=== PATIENT | male | born 1945 | race Caucasian/White ===

== ENCOUNTER 2018-03-09 05:10 | Day surgery (SDC) | payer MEDICARE, OTHER ==
[2018-03-08 16:05] LABS: BASOPHILS 0.2 % (0-2); EOSINOPHILS 7.3 % (0-7); HEMATOCRIT 41.7 % (42.0-54.0); HEMOGLOBIN 13.7 g/dL (13.5-17.5); IMMATURE GRANULOCYTES 0.2 % (0-5); LYMPHOCYTES 20.4 % (15-50); MCHC 32.9 g/dL (31.0-37.0); MCV 91.2 fL (80.0-100.0); MEAN PLATELET VOLUME 10.3 fL (7.4-10.4); MONOCYTES 7.8 % (2-11); NEUTROPHILS 64.1 % (40-80); PLATELET COUNT 176 10x3/uL (130-400); RBC 4.57 10x6/uL (4.20-6.10); RDW 12.6 % (11.5-14.5); WBC 6.3 10x3/uL (4.8-10.8)
[2018-03-08 16:30] LABS: ANION GAP 14.9 mmol/L (8-16); CALCIUM 9.2 mg/dL (8.5-10.1); CARBON DIOXIDE 27.4 mmol/L (21.0-32.0); CREATININE - SERUM 1.5 mg/dL (0.6-1.3); POTASSIUM - SERUM 4.3 mmol/L (3.5-5.1)
[~2018-03-09] VITALS: Ht 180.3 cm; Wt 81.2 kg
[~2018-03-09 05:10] MED LIST: ASPIRIN EC81 M1 PO; FLOMAX0.4 MG; FLOMAX0.4 MG PO; LAMICTAL200 M1 PO; LITHOBID 300 M300 MG PO; MYSOLINE 50 MG50 MG PO; NORVASC5 MG PO; PRAVASTATIN SOD10 MG PO; SYNTHROID175 MCG PO; TOPROL XL50 MG PO; VITAMIN B-121000 MCG PO; WELLBUTRIN XL300 M1 PO; ZOCOR40 MG PO
[2018-03-09] MEDS ORDERED: VITAMIN B-121000 MCG PO (06:14)
[2018-03-09] MEDS ORDERED: MIRAPEX0.5 MG PO (06:18)
[2018-03-09 06:24] VITALS: BP 132/70; Ht 180.3 cm; Wt 81.2 kg
--- NOTE | 2018-03-09 08:45 | NUR ---
REC'D FROM SURGERY. FAMILY AT BEDSIDE. DR LOPEZ IN AND TALKING WITH PT AND FAMILY. ORANGE JUICE BROUGHT TO PT.
--- NOTE | 2018-03-09 08:50 | NUR ---
FL TRAY BROUGHT TO PT.
--- NOTE | 2018-03-09 09:15 | NUR ---
TOLERATING FL TRAY. NO VOID. FAMILY AT BEDSIDE.
--- NOTE | 2018-03-09 09:21 | OP ---
PATIENT NAME: YAMILA CAO V MEDICAL RECORD: [id number] :44 LOCATION:D.[facility] ADMISSION DATE: SURGEON: VINCENT LOPEZ MD DATE OF OPERATION: 03/09/2018 SURGEON: Vincent Lopez MD ANESTHESIA: TIVA by Ector Nguyen CRNA PROCEDURE: Cystoscopy, transrectal ultrasound and prostate biopsy. FINDINGS: On cystoscopy, no urethral strictures. Bilateral lateral lobe hyperplasia with obstruction. No significant median lobe. Single ureteral orifices bilaterally with no bladder tumors. On transrectal ultrasound, 34 gram prostate with intraprostatic stones. SPECIMENS: Prostate biopsy cores. BLOOD LOSS: None. CLINICAL HISTORY: This is a 72-year-old male, who has issues with difficulty voiding. He has been seeing Dr. Anna up to now, but he wants a second opinion. He has been treated with antibiotics for pain in the perineum, worse prior to voiding. They thought this might have been prostatitis. Even after about 120 days of antibiotics, his PSA was still elevated at 5.08. He has significant voiding symptoms including nocturia, occasional urge incontinence, hesitancy, and a slow urinary flow. His IPSS score is 14 and his quality of life score is 6. We are going to be performing cystoscopy to check for his prostate configuration. Also, we will perform a prostate biopsy today. If he does not have prostate cancer on his biopsy, then he will be a candidate for the UroLift procedure in the near future. He is not allergic to any medications. He was given Ancef gis application developer to the OR. DESCRIPTION OF PROCEDURE: The patient was given IV sedation. He was then placed into dorsal lithotomy position, prepped and draped. A 17-Malian cystoscope was placed into the urethra with a 30-degree lens. Findings are as outlined above. Once the bladder outlet obstruction from obstructive BPH, lateral lobes was confirmed. The bladder was completely emptied through the cystoscope sheath. The scope was then removed entirely. We then introduced the transrectal ultrasound probe. Prostate size measurements were obtained. The prostate size was measured at 34 grams. Intraprostatic stones were seen. No hypoechoic lesions were noted. Sextant biopsies were obtained with at least 3 cores from each sextant. Once the procedure was done, the patient was awakened and brought back to the preoperative holding area. I will review the pathology results with him next week. TRANSINT:[id number] Voice Confirmation ID: [id number] DOCUMENT ID: [id number] OPERATIVE REPORT [id number] YAMILA CAO ROBERT S MD at 0921 CC: [id number] DICTATION DATE: 03/09/1838 WATCH LEADER: 03/09/18 0850 REG [facility] [address] [id number]
--- NOTE | 2018-03-09 09:25 | NUR ---
AMBULATED TO BATHROOM AND VOIDED WITHOUT DIFFICULTY. IV DC'D WITH CATHETER INTACT.
--- NOTE | 2018-03-09 09:35 | NUR ---
WRITTEN AND VERBAL DC INST GIVEN TO PT. VERBALIZED UNDERSTANDING. STABLE AT TIME OF DC.
--- NOTE | 2018-03-09 09:40 | NUR ---
DC'D HOME WITH FAMILY VIA PRIVATE VEHICLE. TAKEN TO VEHCILE VIA WC. STABLE AT TIME OF DC.
== END 2018-03-09 09:40 | disposition home or self-care (01) ==
LOC: D.OPS 05:10 → D.PAN 07:30 → D.OPS 07:30
PROVIDERS: Anesthesiology
DX: R97.20 Elevated prostate specific antigen [PSA] (principal); N40.1 Benign prostatic hyperplasia with lower urinary tract symptoms; N13.8 Other obstructive and reflux uropathy; R35.1 Nocturia; N32.0 Bladder-neck obstruction; Z01.812 Encounter for preprocedural laboratory examination

== ENCOUNTER → 2018-03-31 18:50 | Outpatient (CLI) | payer MEDICARE, OTHER ==
[2018-03-09 06:24] VITALS: BMI 25.0
[~2018-03-31 18:50] MED LIST changes: +MIRAPEX0.5 MG PO
== END | disposition home or self-care (01) ==
LOC: D.LABREF 18:50
DX: D72.829 Elevated white blood cell count, unspecified (principal); R31.9 Hematuria, unspecified

== ENCOUNTER → 2018-04-20 15:38 | Outpatient (CLI) | payer MEDICARE, OTHER ==
[2018-03-09 06:24] VITALS: BMI 25.0
== END | disposition home or self-care (01) ==
LOC: D.LABREF 15:38
DX: D72.829 Elevated white blood cell count, unspecified (principal)

== ENCOUNTER 2018-04-27 08:14 | Day surgery (SDC) | payer MEDICARE, OTHER ==
[~2018-04-27] VITALS: Ht 180.3 cm; Wt 83.0 kg
[2018-04-27 08:49] LABS: HEMATOCRIT 41.4 % (42.0-54.0); HEMOGLOBIN 13.6 g/dL (13.5-17.5); MCH 29.7 pg (26.0-34.0); MCHC 32.9 g/dL (31.0-37.0); MCV 90.4 fL (80.0-100.0); RBC 4.58 10x6/uL (4.20-6.10); RDW 13.1 % (11.5-14.5); WBC 5.4 10x3/uL (4.8-10.8)
[2018-04-27 10:13] VITALS: BP 111/72; Ht 180.3 cm; Wt 83.0 kg
--- NOTE | 2018-04-27 12:09 | NUR ---
SHORT STAY PER ELSY CHISHOLM CORE WORKER
--- NOTE | 2018-04-27 12:25 | NUR ---
REC'D FROM RR. FAMILY AT BEDSIDE. ICE WATER AND FL TRAY BROUGHT TO PT.
--- NOTE | 2018-04-27 12:45 | NUR ---
URINAL TAKEN TO PATIENT.
--- NOTE | 2018-04-27 12:55 | NUR ---
TOLERATED FL TRAY. VOIDED BLOODY URINE. FAMILY AT BEDSIDE.
--- NOTE | 2018-04-27 13:10 | NUR ---
WRITTEN AND VERBAL DC INST GIVEN TO PT. VERBALIZED UNDERSTANDING. IV DC'D WITH CATHETER INTACT.
--- NOTE | 2018-04-27 13:30 | NUR ---
DC'D HOME WITH FAMILY VIA PRIVATE VEHICLE. TAKEN TO VEHICLE VIA WC. STABLE AT TIME OF DC.
--- NOTE | 2018-04-27 13:50 | OP ---
PATIENT NAME: YAMILA CAO V MEDICAL RECORD: [id number] :43 LOCATION:D.OPS ADMISSION DATE: SURGEON: ROSAURA LOPEZ MD DATE OF OPERATION: 04/27/2018 SURGEON: Rosaura Lopez MD ANESTHESIA: General anesthesia by Ector Nguyen CRNA DIAGNOSIS: Obstructive BPH. DASIA 60 mL prostate. IPSS score is 14 and quality of life score is 6, on terazosin. PROCEDURE: UroLift times 4 implants. FINDINGS: Bilateral lateral lobe hyperplasia with minimal median lobe hyperplasia. Bilateral single ureteral orifices with no bladder tumors. ESTIMATED BLOOD LOSS: Minimal. CLINICAL HISTORY: This is a 72-year-old male who has quite significant voiding symptoms in spite of being on terazosin for almost a year. He wishes to have the UroLift procedure done. He is not allergic to any medications. He was given Ancef salesperson pets and pet supplies to the OR. Initially, we tried to do this under TIVA. However, the patient's restless legs prevented him from holding still. Therefore, he was given general anesthetic. DESCRIPTION OF PROCEDURE: The patient was given general anesthetic. He was then placed in dorsal lithotomy position and prepped and draped. The UroLift cystoscope was introduced, and the findings are as outlined above. 1.5 cm distal to the bladder neck, we implanted in the anterior lateral prostatic lobes an UroLift implant on each side. This opened up the bladder neck region. Then, at the level of the verumontanum, we again placed at the anterior lateral prostatic urethra another left implant on each side. This gave a total of 4 implants. He now has a wide anterior prosthetic urethral channel. The bladder was emptied through the cystoscope sheath and the patient was awakened and brought to the recovery room. I will see him in followup in 1 month's time. TRANSINT:[id number] Voice Confirmation ID: [id number] DOCUMENT ID: [id number] ROSAURA LOPEZ MD at 1350 CC: [id number] DICTATION DATE: 04/27/18 1157 EVALUATION MANAGER: 04/27/18 1325 REG [facility] [address] [place] [address]
== END 2018-04-27 13:30 | disposition home or self-care (01) ==
LOC: D.OPS 08:14
PROVIDERS: Anesthesiology; ATTEND Urology
DX: N40.1 Benign prostatic hyperplasia with lower urinary tract symptoms (principal); N13.8 Other obstructive and reflux uropathy; G25.81 Restless legs syndrome; Z01.812 Encounter for preprocedural laboratory examination

== ENCOUNTER 2018-04-27 21:07 | Emergency (ER) | payer MEDICARE, OTHER ==
[~2018-04-27] VITALS: Ht 180.3 cm; Wt 79.5 kg
[2018-04-27 21:10] VITALS: Ht 180.3 cm; Wt 79.5 kg
[2018-04-27 21:55] VITALS: BP 145/84
== END 2018-04-27 21:57 | disposition home or self-care (01) ==
LOC: D.ER 21:07
DX: R33.8 Other retention of urine (principal)

== ENCOUNTER 2018-04-28 20:14 | Emergency (ER) | payer MEDICARE, OTHER ==
[~2018-04-28] VITALS: Ht 180.3 cm; Wt 79.5 kg
[2018-04-28 20:26] VITALS: Ht 180.3 cm; Wt 79.5 kg
[2018-04-28 21:23] VITALS: BP 157/73
== END 2018-04-28 21:24 | disposition home or self-care (01) ==
LOC: D.ER 20:14
DX: T83.098A Other mechanical complication of other urinary catheter, initial encounter (principal)

== ENCOUNTER → 2018-05-26 18:50 | Outpatient (CLI) | payer MEDICARE, OTHER ==
[2018-04-28 20:26] VITALS: BMI 24.4
== END | disposition home or self-care (01) ==
LOC: D.LABREF 18:50
PROVIDERS: ATTEND Urology
DX: N39.0 Urinary tract infection, site not specified (principal)

== ENCOUNTER → 2018-06-07 16:07 | Outpatient (CLI) | payer MEDICARE, OTHER ==
[2018-04-28 20:26] VITALS: BMI 24.4
== END | disposition home or self-care (01) ==
LOC: D.LABREF 16:07
PROVIDERS: ATTEND Urology
DX: Z00.00 Encounter for general adult medical examination without abnormal findings (principal)

== ENCOUNTER → 2018-07-27 12:31 | Outpatient (CLI) | payer MEDICARE, OTHER | END | disposition home or self-care (01) | LOC: D.LABREF 12:31 | DX: R30.0 Dysuria (principal) ==

== ENCOUNTER 2020-07-01 13:10 | Inpatient (IN) | payer MEDICARE, OTHER ==
[~2020-07-01] VITALS: Ht 180.3 cm; Wt 79.4 kg
[2020-07-01 13:52] LABS: BASOPHILS 0.2 % (0-2); EOSINOPHILS 4.8 % (0-7); HEMATOCRIT 37.2 % (42.0-54.0); HEMOGLOBIN 12.2 g/dL (13.5-17.5); IMMATURE GRANULOCYTES 0.2 % (0-5); LYMPHOCYTE ABS# 0.92 10x3/uL (1.32-3.57); LYMPHOCYTES 22.1 % (15-50); MCH 30.3 pg (26.0-34.0); MCHC 32.8 g/dL (31.0-37.0); MCV 92.3 fL (80.0-100.0); MEAN PLATELET VOLUME 9.9 fL (7.4-10.4); MONOCYTES 9.9 % (2-11); NEUTROPHIL ABS# 2.61 10x3/uL (1.78-5.38); NEUTROPHILS 62.8 % (40-80); PLATELET COUNT 166 10x3/uL (130-400); RBC 4.03 10x6/uL (4.20-6.10); RDW 12.9 % (11.5-14.5); WBC 4.2 10x3/uL (4.8-10.8)
[2020-07-01 14:01] LABS: ANION GAP 14.9 mmol/L (8-16); CALCIUM 9.4 mg/dL (8.5-10.1); CARBON DIOXIDE 26.6 mmol/L (21.0-32.0); CREATININE - SERUM 1.7 mg/dL (0.6-1.3); POTASSIUM - SERUM 4.5 mmol/L (3.5-5.1)
[2020-07-01 14:06] LABS: ALBUMIN 4.2 g/dL (3.4-5.0); BILIRUBIN - TOTAL 0.43 mg/dL (0.2-1.3); MAGNESIUM - SERUM 2.3 mg/dL (1.8-2.4)
[2020-07-01 16:52] LABS: UDS - AMPHET NEGATIVE QUAL (NEGATIVE); UDS - BARB POSITIVE QUAL (NEGATIVE); UDS - BENZO NEGATIVE QUAL (NEGATIVE); UDS - COCAINE NEGATIVE QUAL (NEGATIVE); UDS - OPIATE NEGATIVE QUAL (NEGATIVE); UDS - PCP NEGATIVE QUAL (NEGATIVE); UDS - THC NEGATIVE QUAL (NEGATIVE)
[2020-07-01 17:07] LABS: BILIRUBIN NEGATIVE (NEGATIVE); KETONE NEGATIVE (NEGATIVE); NITRITE NEGATIVE (NEGATIVE); UROBILINOGEN NORMAL mg/dL (< 2); WHITE CELLS - URINE 25-50 HPF (0-1)
[2020-07-01 17:08] LABS: BACTERIA FEW HPF (NONE SEEN)
[2020-07-01 17:14] LABS: SARS-CoV-2 ANTIGEN NEGATIVE- SARS-COV-2 (NEGATIVE)
--- NOTE | 2020-07-01 18:15 | NUR ---
PT ADMITTED TO [facility] FOR HISTORY OF BIPOLAR AND ADMITS BEING MANIC PER . PT HAS NOT BEEN SLEPT IN FOUR DAYS PER . PT DROVE FROM [place] TO [facility] TO BUY TWO GUNS. PT WENT TO BANK AND WAS RAMBLING TO [employer]. [employer] NOTIFIED PER 'S REPORT. PT FOUND AT [facility] POST OFFICE WITH ONE SHOE ON AND TRANSPORTED TO [facility] ER VIA EMS. UPON ARRIVAL TO THE UNIT. PT WAS YELLING, BECOMING VERY AGGRESSIVE WITH STAFF, AND REMOVING ALL HIS CLOTHING AT THIS TIME. UNABLE TO REDIRECT AT THIS TIME. DR. MENG CALLED. NEW ORDER FOR HALDOL 5MG IM NOW ONE TIME AND ATIVAN 2MG IM NOW ONE TIME. MEDICATIONS GIVEN PER ORDER. PT IS A FULL CODE. VERBAL CONSENT REC'D FROM HORACIO CAO CONTACT # .
--- NOTE | 2020-07-01 20:27 | NUR ---
RECEIVED IN BEDROOM. VERY RESTLESS AND CONFUSED. UNABLE TO VERBALIZE NEEDS. ATTEMPTS TO EXIT BED WITHOUT ASSIST. CORNELIUS ALARM SOUNDING. UNABLE TO FOLLOW SIMPLE DIRECTIONS. PRN GEODON 20MG IM GIVE F0R PSYCHOSIS. CONTINUES TO BE VERY RESTLESS. CONTINUES PLAN OF CARE.
[2020-07-01 20:30] VITALS: BP 172/76
--- NOTE | 2020-07-01 22:08 | NUR ---
CONTINUES TO BE VERY RESTLESS AND CONFUSED. EXITING BED WITHOUT ASSIST. CORNELIUS ALARM SOUNDING. RESISTANT TO REDIRECTION. PRN ATIVAN 1 MG IM GIVEN FOR ANXIETY AND PRN HALDOL 5 MG IM GIVEN FOR PSYCHOSIS.
--- NOTE | 2020-07-01 23:48 | NUR ---
CONTINUES TO BE VERY RESTLESS. CLIMBING FROM BED INTO FLOOR. UNABLE TO REDIRECT OR FOLLOW SIMPLE DIRECTIONS. ANXIETY. PRN ATIVAN 1 MG IM GIVEN FOR ANXIETY AND PRN HALDOL 5 MG IM GIVEN FOR PSYCHOSIS. CONTINUES TO MONITOR FOR SAFETY.
[2020-07-02 00:23] VITALS: BP 172/76; BMI 24.4
--- NOTE | 2020-07-02 08:30 | NUR ---
PT IN ROOM MANIC SPEAKING, PACING, NOT ABLE TO UNDERSTAND WHAT PT IS SPEAKING ABOUT, UNABLE TO REDIRECT AT THIS TIME. PT DID STATE THAT HE WAS LOOKING FOR HIS AND IF WE DIDNT BRING HER TO HIM HE WAS GOING TO DO SOMETHING BAD. NURSE ATTEMPTED TO REDIRECT. NURSE ASSISTED PT INTO RESTROOM. PT WAS SEMI AGRESSIVE WITH STAFF ON REDIRECT BACK TO THE BED. GEODON [address] SHAIKH. WILL REASSESS Q 1 HR FOR EFFECTIVENESS.
--- NOTE | 2020-07-02 09:30 | NUR ---
PT MEDICATION EFFECTIVE AT THIS TIME.
[2020-07-02 10:30] VITALS: BP 119/65
[2020-07-02 10:46] VITALS: Ht 180.3 cm; Wt 79.4 kg
--- NOTE | 2020-07-02 11:45 | NUR ---
MODESTA Valdez BAR TACKER CALLED DR. DE LA CRUZ OFFICE TO OBTAIN A UP TO DATE MEDICATION LIST FOR PT MEDICATIONS. AWAITING MEDICATION LIST FOR MEDICATIONS.
[2020-07-02] MEDS ORDERED: LAMICTAL200 M1 PO (12:04)
[2020-07-02] MEDS ORDERED: LAMICTAL200 M1 (12:06)
[2020-07-02] MEDS ORDERED: MYSOLINE 50 MG50 MG ×4 (12:07→12:09)
[2020-07-02] MEDS ORDERED: OPTIVE SENSITI1 EACH EACH EYE (12:14)
[2020-07-02] MEDS ORDERED: MIRAPEX0.5 MG PO (12:16)
[2020-07-02] MEDS ORDERED: TOPROL XL100 MG (12:16)
--- NOTE | 2020-07-02 12:38 | NUR ---
MEDICATION LIST SENT FROM [facility] AT THIS TIME. MEDICATIONS ENTER INTO THE COMPUTER AT THIS TIME.
--- NOTE | 2020-07-02 15:55 | NUR ---
NURSE GAVE PT A GATORADE AND SEVERAL GLASSES OF WATER AT THIS TIME. PT TOLERATED WELL. CLARITY NOTED. PT SAT IN THE HALLWAY WITH NURSE FOR A WHILE. PT ORIENTED TO PERSON, PLACE AND TIME. PT LACKS INSIGHT TO SITUATION. PT SLEPT FIRST HALF OF SHIFT DUE TO PRN MEDICATIONS. PT CAN MAKE NEEDS KNOWN. AMBULATES. PT WAS DISORIENTED, RAMBLING AND YELLING OUT EARLIER IN SHIFT. PT IS NOW MORE CALM AND ORIENTED. BED ALARM IN PLACE AND ACTIVE. WILL CONT PLAN OF CARE.
--- NOTE | 2020-07-02 18:11 | NUR ---
Rec'd patient this am lying in bed with eyes closed. He is quite. He is A/O times 2 to person and situation. He slept most the day till after lunch then he became more alert and restless. He is talkative and cooperative. He is unsteady. This morning he was restless and would not redirect at all. He was slightly combative with nurses and was gona swing his fist at them.
--- NOTE | 2020-07-02 18:11 | NUR ---
NURSE SPOKE WITH PT AT THIS TIME. PASSCODE GIVEN. SHE WANTED AN UPDATE ON PT AT THIS TIME. NURSE GAVE AN UPDATE ON PT BEHAVIOR. HE HAD MORE CLARITY AND WAS ABLE TO MAKE MORE SENSE AT THIS TIME. PT DID NOT EAT BREAKFAST OR LUNCH. PT DID EAT ALL OF DINNER. NURSE STATED HE WAS MORE CALM AT THIS TIME. STAFF REC[facility]D [facility]. SHE SPOKE WITH THE PT FOR A FEW MINS AND MAKE CLOTHING CHOICES WHILE PT IS HERE.
[2020-07-02 20:00] VITALS: BP 170/72
--- NOTE | 2020-07-02 23:13 | NUR ---
RECEIVED PATIENT IN HIS ROOM SLEEPING, EVENTUALLY HE WOKE UP AND WALKED OUT OF HIS ROOM AND SAID "GIVE ME THE NEEDLE, I AM GOD" HE WAS HARD TO REDIRECT INTIALLY, HE WOULD GET TOO CLOSE TO STAFF'S FACE WHEN TALKING THEREFORE HALDOL AND ATIVAN GIVEN IM @ 2035 FOR SLIGHT AGGRESSION AND MANIC BEHAVIOR. PRN EFFECTIVE.
--- NOTE | 2020-07-03 04:15 | NUR ---
PT YELLING. KICKING THE FOOT OF THE BED. CLAPPING HIS HANDS. WOULD NOT REDIRECT. PRN HALDOL AND ATIVAN IM ADMINISTERED PER LEFT DELTOID BY Clayton SHERIDAN RN.
[2020-07-03 08:00] VITALS: BP 104/85
[2020-07-03 08:14] LABS: RAPID PLASMA REAGIN Non Reactive (Non Reactive)
--- NOTE | 2020-07-03 11:16 | PSY ---
PATIENT NAME:YAMILA CAO MEDICAL RECORD: [id number] : 43 LOCATION:[facility] ADMISSION DATE: 07/01/20 ACCOUNT: [id number] PSYCHIATRIC EVALUATION DATE OF EVALUATION: 07/02/20 IDENTIFYING DATA: The patient is 74 years old and he was admitted to the hospital on a voluntary basis. CHIEF COMPLAINT: Collin. HISTORY OF PRESENT ILLNESS: The patient is wildly manic. Rambling, agitated, threatening, speaking in virtually word salad. He is rambling off various numbers that are unrelated and associated with unrelated verbs and nouns. It is a complete word salad. He is able to follow some directions, although he is hyperverbal and will not answer questions appropriately. PAST MEDICAL HISTORY: Apparently significant for hyperlipidemia, hypothyroidism, and hypertension based on his medication reconciliation. PAST PSYCHIATRIC HISTORY: Provided by his who reports a lifelong history of bipolar disorder for which he has been nicely stabilized. His creatinine has been increasing and a week ago his outpatient psychiatrist took him off of lithium and there was this immediate manic episode. FAMILY HISTORY: Unknown. ALLERGIES: No known drug allergies. CURRENT MEDICATIONS: Include metoprolol, Norvasc, aspirin, Synthroid, Pravachol, Lamictal, Mysoline. SOCIAL HISTORY: The patient is . His reports there is no history of drug or alcohol abuse. 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 MENTAL STATUS EXAMINATION: As described above, the patient is floridly manic, rambling, disorganized and uninterviewable. He does answer no to questions about wanting to harm himself or others. ASSESSMENT: AXIS I: Bipolar disorder, manic. AXIS II: None. AXIS III: Hypertension, hypothyroidism. AXIS IV: Moderate. AXIS V: Global assessment of functioning is 20. PLAN: At this time, the patient is admitted to the hospital secondary to collin with agitation and disruptive behaviors. He will be treated with Depakote and Zyprexa to address his manic symptoms. I would like to put him back on lithium and it may be required that I do so, but he does have a creatinine of 1.7 and almost certainly that is related to his longstanding exposure to lithium, but it is also clear that he has been nicely stabilized on lithium and it may well be necessary to resume it. TRANSINT:[id number] Voice Confirmation ID: [id number] DOCUMENT ID: [id number] GARRETT MENG MD at 1116 CC: [id number] DICTATION DATE: 07/02/201656 HAMMER ADJUSTER: 07/02/20 1723 ADM IN [facility] [address] [place] [address]
--- NOTE | 2020-07-03 11:29 | NUR ---
At approx. 1000 this am, patient became combative with nursing staff. This nurse had attempted 3 times to get him to take him his medications and the last time he grabbed the stryroforam cup out of the nurses hands, squeezed it and slung the cup and its contents at this nurse. He was not redirectable. Per MD order, Ativan and Haldol IM given.
--- NOTE | 2020-07-03 13:55 | NUR ---
Patient was assisted to the bathroom with 2 staff members and assisted back into his reclining w/c. When he sat down, he instantly placed his hand down into his private area, he reached inside his adult pull up and took out his penis, rubbing it, and layed it out in the opening of his brief. He then was attempting to reach back in and take out his scrotum and get it out of his brief. Staff interviened and redirected his actions and provided a blanket for him to cover himself.
--- NOTE | 2020-07-03 16:17 | NUR ---
nurse administered Geodon 20 mg IM in LD per dr. hernandez order. pt tolerated well. will cont to monitor for effectiveness.
--- NOTE | 2020-07-03 17:28 | NUR ---
medication effective at this time.
--- NOTE | 2020-07-03 17:29 | NUR ---
pt eating at this time with much encouragement. pt is restless, oriented to self only. confusion noted. rambling words. does not redirect. attempt to redirect and reorient. very diffuclt to do so. can not make needs known. requires 3x assistance with adls. continue to encourage fluids at this time. noncompliant with meds. prn haldol and ativan administered per order. compliant with assessments and vitals. pt conts to aggressive with care. bed and chair alarm in place and active.
--- NOTE | 2020-07-03 18:05 | NUR ---
Rec'd phone call from patients spouse Lilliana, after pass code reviewed, she requested information about his well being and how he was doing this afternoon. Information given and all questions answered. She thanked us for our time.
[2020-07-03 20:00] VITALS: BP 180/76
--- NOTE | 2020-07-04 00:43 | NUR ---
B) Patient is alert and oriented to self, restless and aggressive with staff, disrobing in hallway, anxious and unsteady on his feet, I) Administered scheduled medications as ordered, redirected as needed, monitored for safety, P$RN Ativan 0.5 mg IM and Haldol 2 mg IM given for anxiety and aggression, at 19:30 R) Medication compliant, sleeping quietly in his bed at this time, P) Continue plan of care.
[2020-07-04 08:00] VITALS: BP 152/83
--- NOTE | 2020-07-04 08:58 | NUR ---
NURSE SPOKE WITH PT . PASSCODE GIVEN. SHE WANTED TO KNOW HOW HE WAS DOING AND HOW HE DID LAST NIGHT. NURSE GAVE AN UPDATE ON HOW HE DOING AT THIS TIME. NURSE GAVE AN UPDATE ON HOW HIS NIGHT WAS. PT SLEPT 6.25 HOURS, DID REC'D MEDICATION FOR ANXIETY AND RESTLESS WITH MANIC BEHAVIOR. HE WAS VERY RESTLESS WITH US THIS SHIFT BUT PT WAS ABLE TO TAKE HIS MEDICATIONS BY MOUTH FOR STAFF. PT IS IN A MANIC PHASE SO PATIENCE AND CONSTANT REDIRECTION IS NEEDED. NURSE WENT OVER THE MEDICATIONS THAT DR. MENG STARTED PT ON DEPAKOTE, KLONOPIN AND ZYPREXA. NURSE WENT OVER MEDICATIONS AND USES. SHE STATED HE HAD TOOK HIMSELF OFF THE LITHIUM ABOUT 2 WEEKS AGO BEFORE ALL THIS HAPPEN. HE TOLD THE DOCTOR HE TOOK HIMSELF OFF THE LITHIUM AND THE DOCTOR SAID WELL OKAY THATS GOOD THEN. IM REALLY UPSET WITH DR. JONES I THINK HE COULD HAVE DONE BETTER BUT THEY CALLED [facility]ESTERDAY [facility] AND THEY WOULD NOT TALK TO ME. SO I DONT KNOW WHATS GOING ON WITH HIS MEDICATIONS AT ALL. NURSE STATED PT DID TELL NURSE HE STOPPED TAKING HIS MEDICATIONS CAUSE HE DIDNT WANT TO BE ON DIALYSIS FOR THE REST OF HIS LIFE. THE DOCTOR HERE WILL WORK ON A MEDICATION REGIMEN THAT WILL WORK FOR HIM. IF HE CONTINUES TO TAKE HIM MEDICATION PRESCRIBED HOPEFULLY HE WILL BE SUCCESSFUL POSSIBLE. THE DOCTOR WILL CONTINUE TO WORK ON HIS MEDICATIONS. GAVE A LIST OF FOODS THE PT LIKES INCLUDING SOUP, PEANUT AND BUTTER CRACKERS, SWEET TOOTH, GREEN BEANS, GREENS, SALAD WITH HONEY MUSTARD, GRITS, WAFFLES, MILK AT NIGHT TIME. HE IS A BIG SNACKER. THATS ALL I CAN REMEMEBER. I REALLY HOPE HE CAN BE SUCCESSFUL. I HATE THAT I CANT SEE HIM AND ITS VERY HARD. WE HAVE BEEN 8 YEARS AND YEIMI NEVER SEEN IT THIS BAD. HE WAS GETTING BETTER PUTTING AWAY TOOLS AND FINISHING PROJECTS. HE WAS DOING BETTER. IT REALLY BOTHERED ME THAT HE TOOLS THE KEYS AND SNUCK OUT OF THE HOUSE AND DROVE WITHOUT ME KNOWING. I REALLY HOPE HE GETS BETTER. SHE THANKED NURSE.
--- NOTE | 2020-07-04 10:02 | NUR ---
NURSE SPOKE WITH Yovanny HARRIS APRN ABOUT PT'S MEDICATIONS. HOLD ATIVAN 0.5 MG PO AND IM TO DETERMINE IF MEDICATION IS EFFECTIVE. WILL RESUME 07/05/20. MEDICATIONS ON HOLD AT THIS TIME.
--- NOTE | 2020-07-04 11:41 | NUR ---
Patient was just sitting in a reclining w/c in a reclining position and he started to slide down and out of the w/c. He eased his body his body to the floor and just sat there. He is crawling around on the floor. He is moving all extremeties.He was assisted to a bent over position and back into the w/c. He was offered jello.
--- NOTE | 2020-07-04 15:41 | NUR ---
Patient woke up and became verbally and physically combative to staff. He would not sit down or redirect so that staff could direct care. He was attempted to be redirected by unit aide with discussion of their past experiences. This was unsucessful. His behavior continued to escalate and he was offered fluids, food, and tolieting. This redirection again was unsucessful then patient began to expose himself. Per MD order, Serenity HI was give.
--- NOTE | 2020-07-04 15:46 | NUR ---
Patient attempted to stand up from chair and then began to swing both arms at nurse and MHT.
--- NOTE | 2020-07-04 16:54 | NUR ---
PT BROUGHT PT BLUE GATORADES, 2 PAIR OF GLASSES, PICTURE OF HER, LETTER, 2 T-SHIRTS, AND A SWEET TEA. NURSE LOGGED ITEMS.
--- NOTE | 2020-07-04 18:49 | NUR ---
PT SPOKE WITH THIS SHIFT. PT IS NOW DEMANDING AND ARGUMENATIVE.
[2020-07-04 20:00] VITALS: BP 147/63
--- NOTE | 2020-07-04 21:24 | NUR ---
PT IS ALERT AND ORIENTED TO SELF ONLY. RECEIVED IN A GERICHAIR IN THE HALLWAY OUTSIDE OF NURSES STATION. RESTLESS AND ATTEMPTS TO GET UP WITHOUT ASSIST. PREOCCUPIED WITH A WATCH HE SAYS HE CAME IN WITH. DEMANDING THE WATCH BE RETURNED TO HIM RIGHT NOW. COMPLIANT WITH ALL MEDICATIONS. RESISTANT TO REDIRECTION. REQUIRES CONSTANT REDIRECTION. MONITOR FOR SAFETY.
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
--- NOTE | 2020-07-05 02:25 | NUR ---
PT RESTING IN GERICHAIR OUTSIDE THE NURSES STATION TO MONITOR SAFETY. NO DISTRESS NOTED.
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
--- NOTE | 2020-07-05 07:13 | NUR ---
YELLING,AGGRESSIVE WITH STAFF.WILL NOT REDIRECT.GEODON 20MG IM TO RT BUTTOCK GIVEN.IS IN RECLINER AND CONSTANTLY TRYING TO GET UP WITHOUT ASSIST.IS VERY UNSTEADY.ORIENTED TO SELF.WILL CONTINUE WITH CURRENT PLAN OF CARE,MONITOR FOR SAFETY AND CHANGES.
--- NOTE | 2020-07-05 07:45 | NUR ---
POOR RESPONSE TO GEODON.REQUIRES CONSTANT OBSERVATION.
[2020-07-05 08:58] VITALS: BP 113/56
--- NOTE | 2020-07-05 10:26 | NUR ---
HALDOL 5MG IM TO RT DELTOID FOR CONTINUED AGGRESSION TOWARD STAFF .SITTING IN WHEELCHAIR IN NURSES STATION FOR HIS SAFETY.CONTINUES TO ATTEMPT TO GET OUT OF [place]AIR[place] IS AGGRESSIVE WITH STAFF.
--- NOTE | 2020-07-05 11:35 | NUR ---
HITTING AT STAFF,ATTEMPTING TO GET OUT OF CHAIR.WILL NOT REDIRECT.HALDOL 2MG IM GIVEN.
--- NOTE | 2020-07-05 12:00 | NUR ---
HAS CALMED DOWN SOME BUT STILL ATTEMPTS TO GET UP WITHOUT ASSIST.GRABS AT ANYTHING WITHIN REACH.HAS PAPER AND DRY ERASE PEN TO ENTERTAIN HIM AND DOES WRITE WITH IT SOME BUT LOSES INTEREST AND HAS BEEN OBSERVED HALLUCINATING,FISHING MOTIONS OBSERVED.
--- NOTE | 2020-07-05 13:14 | NUR ---
HITTING AT STAFF,PUSHING HIS WHEELCHAIR BACKWARDS,WILL NOT REDIRECT.HALDOL 5MG IM GIVEN PER ORDERS.
--- NOTE | 2020-07-05 13:45 | NUR ---
POOR RESPONSE TO HALDOL.AGGRESSIVE WITH STAFF.WILL NOT REDIRECT.REMAINS AT NURSES STATION IN WHEELCHAIR.
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
--- NOTE | 2020-07-05 15:20 | NUR ---
PLACED IN SECLUSION.LAYS PRONE ON FLOOR.FOUGHT STAFF ENTIRE TIME IT TOOK TO WALK HIM TO SECLUSION ROOM.
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
--- NOTE | 2020-07-05 15:25 | NUR ---
ATIVAN 2MG IM TO RT.THIGH PER ORDERS.DID NOT FIGHT STAFF.CONTINUES TO LAY ON FLOOR.
--- NOTE | 2020-07-05 15:30 | NUR ---
PUTS SELF ON MATTRESS THAT IS LAYING ON FLOOR.QUITE,RESP.REGULAR AND EVEN.NO SIGNS OF DISTRESS.
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
--- NOTE | 2020-07-05 15:36 | NUR ---
PT PLACED IN SECLUSION AT THIS TIME PER DR. MENG ORDER. WILL FOLLOW PROPER PROTOCOL FOR SECLUSION AT THIS TIME. EDWIGE Funes, RN SLIDE FASTENERS INSPECTOR NOTIFIED. BUILDING RENTAL SUPERINTENDENT NOTIFIED. PT WAS BANGING AGAINST DOOR ATTEMPTING TO OPEN DOOR. WILL DOCUMENT ON PT Q [address] MENG OF [facility] NOTED.
--- NOTE | 2020-07-05 15:45 | NUR ---
REFUSES TO ALLOW NURSE TO GET VS,PULLS ARM BACK AND AWAY.LAYING PRONE ON MATTRESS ON FLOOR.
--- NOTE | 2020-07-05 15:55 | NUR ---
CONTINUES TO LAY PRONE ON MATTRESS.QUITE,NO SIGNS OF DISTRESS.
--- NOTE | 2020-07-05 16:25 | NUR ---
CONTINUES TO LAY PRONE ON MATTRESS.TURNED OVER PER STAFF,EYES CLOSED,RESP.REGULAR AND EVEN,NO SIGNS OF DISTRESS.WILL HOLD ATIVAN AND HALDOL FOR NOW.
--- NOTE | 2020-07-05 16:45 | NUR ---
RESTING QUIETLY ON MATTRESS.NO SIGNS OF DISTRESS.
--- NOTE | 2020-07-05 17:15 | NUR ---
NO CHANGE,CONTINUES TO REST QUIETLY ON MATTRESS.RESP.REGULAR AND EVEN.
--- NOTE | 2020-07-05 17:29 | NUR ---
CORRECTION TO [id number] NURSES NOTE.HALDOL WAS NOT GIVEN AT THIS TIME TO THIS PATIENT,IT WAS GIVEN TO ANOTHER PATIENT.
--- NOTE | 2020-07-05 17:45 | NUR ---
ALLOWS VS TO BE TAKEN.VS STABLE.
--- NOTE | 2020-07-05 17:59 | NUR ---
NURSE SPOKE WITH HORACIO DOZIER AT THIS TIME ABOUT INCIDENT THIS AFTERNOON AND PT BEING IN SELCUSION ROOM. PT IS RESTING. NURSE EDUCATED HER ON THE POLICY AND INFORMATION ON INCIDENT WELL. PT BECAME VERY AGGRESSIVE WITH STAFF AND HIT STAFF MEMBER. NURSE CALLED DR. MENG FOR ORDERS. DR. MENG STATED TO STOP THE DEPAKOTE AND START THE LITHIUM BACK HE IS NOT ADJUSTING WELL TO THE OTHER MEDICATIONS WE ARE TRYING. SHE ASKED NURSE IF SHE WAS OKAY AT THIS TIME. HOW IS THE STAFF DOING. SHE STATED SHE WAS SORRY THAT WE HAD TO DEAL WITH IT. SHE HATED TO HEAR WHAT HAPPENDED AND SHE DID NOT SLEEP WELL LAST NIGHT SHE WAS WORRIED SICK. NURSE STATED DO NOT WORRY ABOUT THE SITUATION. HE IS IN THE SAFETY PLACE HE CAN BE. HE IS BEING TAKEN CARE OF WELL. THE HOPE IS ONCE HE GETS HIS REGULAR MEDICATIONS THAT WOULD ASSIST WITH SOME CLARITY. SHE THANKED NURSE FOR THE INFORMATION AND GAVE STAFF CORRECT NUMBER TO REACH HER AND NOTIFY HER OF INFORMATION.
--- NOTE | 2020-07-05 18:55 | NUR ---
AROUSING.RESTLESS.TRANSFERED FROM SECLUSION TO HIS ROOM VIA WHEELCHAIR.ATIVAN 2MG AND HALDOL 5MG IM GIVEN PER ORDERS.
--- NOTE | 2020-07-05 18:59 | NUR ---
STAFF 3X PUT PT INTO BED AND OUT OF SECLUSION ROOM. PT WAS RESTLESS, AROUSABLE AT THIS TIME.
[2020-07-05 21:23] VITALS: BP 117/64
--- NOTE | 2020-07-05 23:08 | NUR ---
PT RESTING IN BED CALMLY WITH EYES CLOSED. NO SIGNS OF DISTRESS NOTED. COMPLIANT WITH ALL MEDICATIONS. VERY GROGGY FROM MEDICATIONS RECEIVED AT SHIFT CHANGE. HOB AT 45 DEGREES. BED ALARM ON AND WORKING. MONITOR FOR SAFETY.
--- NOTE | 2020-07-06 03:05 | NUR ---
PT YELLING OUT IN HIS BED WITH EYES CLOSED. RIPPED OFF BRIEF AND TORE HIS SHIRT COLLAR. THREW URINAL IN THE FLOOR. ATTEMPTED TO REDIRECT. MONITOR FOR SAFETY.
--- NOTE | 2020-07-06 04:51 | NUR ---
PT ATTEMPT TO HIT STAFF WHEN ASSISTING HIM BACK INTO BED. COMBATIVE WITH BOTH STAFF MEMBERS. HITTING AND YELLING UNCOMPREHENSIBLE WORDS. UNABLE TO REDIRECT. ADMINISTERED PRN GEODON FOR PSYCHOTIC BEHAVIORS PER ORDERS. BED ALARM ON AND WORKING. MONITOR FOR SAFETY.
[2020-07-06 08:00] VITALS: BP 138/68
--- NOTE | 2020-07-06 08:43 | NUR ---
Charge nurse Luis Fernando has spoken with Dr. Nielsen this am related to current medications and his behaviors.Patient has been yelling and thrashing about in bed since shift charge without being able to redirect. Patient is also spitting this over bed rail. Haldo and Ativan Im given. HOB elevated and resp. are even.
--- NOTE | 2020-07-06 13:01 | NUR ---
RESTING QUIETLY IN BED AT THIS TIME. PATIENT EXPERIENCING AGITATION AND ANXIETY EARLIER THIS SHIFT, REQUIRING PRN INJECTIONS OF ATIVAN AND HALDOL. SPOUSE CALLED THIS MORNING TO CHECK ON PATIENT CONDITION. PATIENT RESPONDED WELL TO PRN MEDICATIONS. ROUTINE MORNING MEDS ADMINISTERED AT SCHEDULED TIME WITH NO ADVERSE REACTION NOTED. CONTINUE PLAN OF CARE.
--- NOTE | 2020-07-06 14:56 | NUR ---
At 11 am patient began to moan real loud and the staff found him on his back with 1/2 his body (legs 1st) hanging off the end of the bed. He had one of his arms thru the side rail. He was restless and yelling at staff. Patient was unable to be redirected. Per MD order, Haldol and Ativan IM given. At approx.1200, patient could be heard snoring very loudly all over unit. His resp. were even and stable.
--- NOTE | 2020-07-06 15:00 | NUR ---
At approx. 1445. patient became very restless, moaning very loudly, yelling and then staff responded to his room. Patient was found to be again hanging off the bed. He became non-compliant with simple directions. He was hanging 1/2 way off the bed and onto the 1/2 side rail. Haldol and Ativan IM given per MD orders. He was offered fluids, checked for dryness, and repositioned in bed
--- NOTE | 2020-07-06 17:22 | NUR ---
Patient began to yell out loud. He is rolling about in bed. He is hollering "Thorazine...Thorazine...Thorazine" He is almost in a chant. He is restless. He has moved his body down to the end of the bed. He is not responding to our directions. Per MD order, Serenity IM given. Patient was offered food, fluids, checked for dryness, and repositioned for comfort. He consumed approx 400 cc of gatarade.
--- NOTE | 2020-07-06 17:50 | NUR ---
PATIENT CONTINUES TO YELL ALOUD IN BED AND BABBLE INCOMPREHENSIBLE WORDS.
--- NOTE | 2020-07-06 18:33 | NUR ---
PATIENT HAS NOT EATEN ANY OF HIS MEALS TODAY. HOWEVER, PATIENT HAS CONSUMED WATER ON SEVERAL OCCASIONS AND DRANK APPROXIMATELY 400 ML OF GATORADE WITH THICKENER ADDED.
--- NOTE | 2020-07-06 20:01 | NUR ---
RECEIVED IN BEDROOM. RESTING IN BED WITH EYES CLOSED. CALM AND COOPERATIVE WITH CARE AND ASSESSMENT. DOES NOT FOLLOW COMMANDS. REDIRECT AND REORIENT NEEDED. CONTINUES TO REST QUIETLY IN BED WITH EYES CLOSED. CONTINUES PLAN OF CARE.
--- NOTE | 2020-07-06 20:58 | NUR ---
RESTLESS. ATTEMPTS TO EXIT BED. YELLING OUT. AGITATION WITH CARE. PRN ATIVAN 2 MG IM GIVEN FOR AGITATION AND PRN HALDOL 5 MG IM GIVEN FOR ANXIETY.
[2020-07-06 21:50] VITALS: BP 155/60
--- NOTE | 2020-07-06 22:00 | NUR ---
RESTING CALMLY IN BED WITH EYES CLOSED AT THIS TIME.
--- NOTE | 2020-07-07 04:08 | NUR ---
PT SHAKING BED RAILS VIOLENTLY AND YELLING. ATTEMPTS TO EXIT BED WITHOUT ASSIST. AGGITATION WITH REDIRECTION. ADMINISTERED PRN GEODON IM PER ORDERS. MONITOR FOR SAFETY.
--- NOTE | 2020-07-07 04:50 | NUR ---
PT IN BED WITH EYES CLOSED. WORD SALAD AND MUMBLING. RAMBLING BUT NO SIGNS OF DISTRESS NOTED. REPOSITIONED IN THE BED. HOB 45 DEGREES AND BED ALARM ON FOR SAFETY.
[2020-07-07 08:00] VITALS: BP 130/69
--- NOTE | 2020-07-07 09:38 | NUR ---
Nutrition Follow-up: Diet: Regular PO intake: 0-5% x all meals; patient does not appear to be drinking oral nutrition supplements and also refusing snacks. Last BM: none recorded since admit x 6 days now Wt: 175# (07/02/20), no new weight Meds and labs reviewed Recommend continue regular diet. Will add Ensure to meal trays. Recommend MD to consider adding appetite stimulant and medically feasible. RD will follow-up 07/09/20.
--- NOTE | 2020-07-07 14:40 | PN ---
PATIENT:YAMILA CAO MEDICAL RECORD: [id number] LOCATION:[facility] ADMISSION DATE: 07/01/20 PROGRESS NOTE DATE OF SERVICE: 07/03/2020 SUBJECTIVE: The patient's case was discussed with staff. He has no new complaint. OBJECTIVE: The patient is disorganized and appears a little sedated. He did not take his morning medicines, but when asked about it, insists that he did. ASSESSMENT: Bipolar disorder. PLAN: Current medicines have been reviewed and will be maintained. His long-term prognosis is guarded. TRANSINT:[id number] Voice Confirmation ID: [id number] DOCUMENT ID: [id number] GARRETT MENG MD at 1440 CC: [id number] DICTATION DATE: 07/03/20 1606 OCCUPATIONAL HEALTH TECHNICIAN: 07/03/202003 ADM IN [facility] [address] [place] [address]
--- NOTE | 2020-07-07 15:57 | NUR ---
PT YELLING OUT, RESTLESS, AND AGITATIED WITH CARE. PT BECOME COMBATIVE WITH STAFF AT TIMES. HALDOL 5MG IM AND ATIVAN 2MG IM GIVEN PER PRN ORDER. REDIRECT AND REORIENT NEEDED. PT HAS REFUSED BREAKFAST AND LUNCH TODAY. HOWEVER, PT HAS BEEN OFFERED WATER AND GATORGADE WITH THICKENER. PT CONSUMED 360 MLS TOTAL AT THIS TIME. FALL PRECAUTIONS IN PLACE. WILL CPOC.
[2020-07-07 17:20] LABS: BASOPHILS 0.2 % (0-2); EOSINOPHILS 4.5 % (0-7); IMMATURE GRANULOCYTES 0.2 % (0-5); LYMPHOCYTE ABS# 0.94 10x3/uL (1.32-3.57); LYMPHOCYTES 17.1 % (15-50); MCH 30.3 pg (26.0-34.0); MCHC 32.6 g/dL (31.0-37.0); MCV 93.1 fL (80.0-100.0); MEAN PLATELET VOLUME 10.6 fL (7.4-10.4); MONOCYTES 9.8 % (2-11); NEUTROPHIL ABS# 3.75 10x3/uL (1.78-5.38); NEUTROPHILS 68.2 % (40-80); PLATELET COUNT 160 10x3/uL (130-400); RBC 4.62 10x6/uL (4.20-6.10); RDW 12.7 % (11.5-14.5); WBC 5.5 10x3/uL (4.8-10.8)
[2020-07-07 18:10] LABS: ANION GAP 20.9 mmol/L (8-16); CALCIUM 9.7 mg/dL (8.5-10.1); CARBON DIOXIDE 21.7 mmol/L (21.0-32.0); CREATININE - SERUM 1.8 mg/dL (0.6-1.3); POTASSIUM - SERUM 4.6 mmol/L (3.5-5.1); THYROID STIMULATING HORMONE 0.5 uIU/mL (0.36-3.74)
--- NOTE | 2020-07-07 20:08 | NUR ---
RECEIVED IN DAYROOM. SITTING IN A RECLINER WITH A PEER AT HIS SIDE. CONFUSED, CALM AND COOPERATIVE WITH CARE AND ASSESSMENT.NO SIGNS OF AGGRESSION. REDIRECT AND REDIRECT NEEDED. CONTINUES TO SIT CALMLY IN RECLINER. CONTINUE PLAN OF CARE.
[2020-07-07 20:17] VITALS: BP 168/74
--- NOTE | 2020-07-07 21:56 | NUR ---
PT RESTLESS AND ANXIOUS. LOUD TANGENTIAL SPEECH. DOES NOT RESPOND TO VERBAL REDIRECTION. DISRUPTING OTHER PATIENTS. HALDOL PRN IM ADMINISTERED PER LEFT VASTUSLATERALIS.
--- NOTE | 2020-07-07 22:59 | NUR ---
PT CONTINUES TO YELL OUT FROM BED. RESTLESS. ANXIETY.
--- NOTE | 2020-07-08 01:40 | NUR ---
CONTINUES TO BE RESTLESS IN BED. NOT SLEEPING. YELLING OUT CONSTANTLY. PRN GEODON 20 MG IM GIVEN FOR ANXIETY.
--- NOTE | 2020-07-08 03:23 | NUR ---
RESTING QUIETLY IN BED WITH EYES CLOSED AT THIS TIME.
--- NOTE | 2020-07-08 05:52 | NUR ---
YELLING OUT FROM BED. RESTLESS.
--- NOTE | 2020-07-08 06:15 | NUR ---
INCREASING ANXIETY. YELLING LOUDLY FROM BED. RESTLESS. PRN HALDOL 5 MG IM GIVEN FOR ANXIETY
[2020-07-08 08:00] VITALS: BP 114/75
--- NOTE | 2020-07-08 08:00 | NUR ---
REC'D PT IN HALLWAY SITTING IN RECLINING CHAIR. PT IS CALM AND COOPERATIVE WITH ASSESSMENT AT THIS TIME. PT APPEARS SLEEPY AT THIS TIME. PT CAN BECOME RESTLESS, AGITATED, AND YELLING OUT AT STAFF DURING SHIFT. WORD SALAD NOTED AT TIMES PER STAFF. PT HARD TO REDIRECT AT TIMES. NO BEHAVIORS NOTED AT THIS TIME, PT SLEEPING. REDIRECT AND REORIENT NEEDED. FALL PRECAUTIONS IN PLACE. WILL CPOC.
--- NOTE | 2020-07-08 15:20 | PN ---
PATIENT:YAMILA CAO MEDICAL RECORD: [id number] LOCATION:[facility] ADMISSION DATE: 07/01/20 PROGRESS NOTE DATE OF SERVICE: 07/07/2020 SUBJECTIVE: The patient's case was discussed with staff. He has no new complaint. OBJECTIVE: The patient is arousable, but not providing anything in the way of useful history. ASSESSMENT: Bipolar disorder. PLAN: The patient has been extremely violent and aggressive. He has been p.r.n. today. His insight is very poor. To restate the clinical dilemma, he has some renal insufficiency, probably almost certainly caused by lithium. However, within a week of coming off his lithium, he went from decades of functioning very well to manic and aggressive. At this time, he has been restarted on lithium. TRANSINT:[id number] Voice Confirmation ID: [id number] DOCUMENT ID: [id number] GARRETT MENG MD at 1520 CC: [id number] DICTATION DATE: 07/07/20 1621 CERTIFIED MASSAGE THERAPIST: 07/08/20 0000 ADM IN [facility] [address] [place] [address]
[2020-07-08 17:59] LABS: ANION GAP 18.5 mmol/L (8-16); CALCIUM 10.3 mg/dL (8.5-10.1); CARBON DIOXIDE 24.1 mmol/L (21.0-32.0); CREATININE - SERUM 1.9 mg/dL (0.6-1.3); POTASSIUM - SERUM 4.6 mmol/L (3.5-5.1)
[2020-07-08 19:58] VITALS: BP 128/68
--- NOTE | 2020-07-08 20:12 | NUR ---
RECEIVED IN DAYROOM. RESTING IN A RECLINER AT TABLE WITH EYES OPEN. RESTLESS AT TIMES. CALM AND COOPERATIVE WITH CARE AND ASSESSMENT. NOT YELLING OUT. NO SIGNS OF AGGRESSION. REDIRECT AND REORIENT NEEDED. CONTINUES TO SIT, RESTLESS AT TIMES. CONTINUE PLAN OF CARE.
--- NOTE | 2020-07-08 21:00 | NUR ---
RESTLESS. CLIMBING OUT OF BED ONTO FLOOR IN HIS ROOM. INCREASING ANXIETY. PRN GEODON 20 MG IM GIVEN FOR ANXIETY.
--- NOTE | 2020-07-08 22:00 | NUR ---
CONTINUES TO BE RESTLESS. YELLING OUT FROM BED.
--- NOTE | 2020-07-08 22:30 | NUR ---
DR SANTOS MICKI WITH LAB RESULTS. JOHANNA CASTRO TO PUSH FLUIDS AND REPEAT LABS IN AM. NO FURTHER ORDERS AT THIS TIME.
--- NOTE | 2020-07-09 00:01 | NUR ---
YELING OUT LOUDLY FROM BED. RESTLESS.
--- NOTE | 2020-07-09 00:37 | NUR ---
INCREASING ANXIETY AND RESTLESSNESS. YELLING OUT CONSTANTLY FROM BED. PRN HALDOL 5 MG IM GIVEN FOR ANXIETY.
--- NOTE | 2020-07-09 01:40 | NUR ---
CONTINUES TO BE RESTLESS IN BED. YELLING OUT. UNABLE TO REDIRECT OR REORIENT.
--- NOTE | 2020-07-09 04:36 | NUR ---
RESTING CALMLY WITH EYES CLOSED.
--- NOTE | 2020-07-09 07:55 | NUR ---
REC'D PT IN RECLINING CHAIR IN HALLWAY BY THE NURSES STATION. PT IS RESTLESS, YELLING OUT CONSTANTLY, AND BECOMES AGGRESSIVE WITH REDIRECTION. HARD TO REDIRECT. PT IS AWAKE AND ALERT TO PERSON ONLY AT THIS TIME. PT IS REMOVING ALL CLOTHING AND THROWING IT IN THE FLOOR. STAFF DRESSED PT AT THIS TIME. PT. CONTINUES TO REMOVE CLOTHING AND GET OUT OF CHAIR UNASSISTED. PT HAS LITTLE INSIGHT INTO HIS SITUATION AT THIS TIME. PRESCRIBED MEDS PROVIDED ORDERED. MED COMPLIANT. REDIRECT AND REORIENT NEEDED. ALARM ON, IN PLACE, AND WORKING PROPERLY FOR SAFETY AT THIS TIME. FALL PRECAUTIONS IN PLACE. WILL CPOC.
[2020-07-09 08:00] VITALS: BP 122/63
--- NOTE | 2020-07-09 09:47 | PN ---
PATIENT:YAMILA CAO MEDICAL RECORD: [id number] LOCATION:[facility] ADMISSION DATE: 07/01/20 PROGRESS NOTE DATE OF SERVICE: 07/08/2020 SUBJECTIVE: The patient's case was discussed with staff. He has no new complaint. OBJECTIVE: The patient is disorganized with poor insight about his condition. He has been significantly agitated. ASSESSMENT: Bipolar disorder. PLAN: The patient will be treated with a higher dose of Zyprexa. His lithium level is subtherapeutic; however, his BUN and creatinine are both elevated. Weighing the relative risks and benefit given the overall description of the patient's behavior, this is certainly problematic. TRANSINT:[id number] Voice Confirmation ID: [id number] DOCUMENT ID: [id number] GARRETT MENG MD at 0947 CC: [id number] DICTATION DATE: 07/08/20 1642 CHILD NURSE: 07/09/20 0000 ADM IN [facility] [address] [place] [address]
--- NOTE | 2020-07-09 09:58 | NUR ---
Nutrition Re-Assessment Diet: Regular + Ensure TID PO Intake: 0% x last 10 meals Last BM: 07/08/20 Wt: 175# (07/02/20)- staff is unable to get updated weight 2/2 patient uncooperative Meds reviewed Labs noted (07/08/20): BUN 37(H), Cr 1.9(H), GFR 37(L) Estimated nutrition needs: [id number] collin (25-30 Act), 48-64gms protein (0.6-0.8), 2000-2400mL fluid (or per MD) Nutrition diagnosis: Inadequate energy intake r/t AMS/inadequate oral intake AEB PO intake 0% x last 10 meals. Nutrition goals: -PO intake will increase to =/>75% -Meet fluid needs -Stable weight DHS Recommendations/Interventions: -Recommend continue Regular diet, will continue to honor food preferences. -Continue oral nutrition supplements. -Recommend MD to consider adding Megace ES to meds (as medically feasible). -RD will follow-up 07/14/20.
[2020-07-09 11:05] LABS: BASOPHILS 0.2 % (0-2); EOSINOPHILS 3.8 % (0-7); HEMATOCRIT 43.7 % (42.0-54.0); HEMOGLOBIN 14.2 g/dL (13.5-17.5); IMMATURE GRANULOCYTES 0.1 % (0-5); LYMPHOCYTE ABS# 1.04 10x3/uL (1.32-3.57); LYMPHOCYTES 12.9 % (15-50); MCH 30.1 pg (26.0-34.0); MCHC 32.5 g/dL (31.0-37.0); MCV 92.6 fL (80.0-100.0); MEAN PLATELET VOLUME 10.7 fL (7.4-10.4); MONOCYTES 9.3 % (2-11); NEUTROPHIL ABS# 5.93 10x3/uL (1.78-5.38); NEUTROPHILS 73.7 % (40-80); RBC 4.72 10x6/uL (4.20-6.10); RDW 12.7 % (11.5-14.5)
[2020-07-09 11:09] LABS: PLATELET COUNT 213 10x3/uL (130-400); WBC 8.1 10x3/uL (4.8-10.8)
[2020-07-09 11:13] LABS: ALBUMIN 3.9 g/dL (3.4-5.0); ANION GAP 19.7 mmol/L (8-16); BILIRUBIN - TOTAL 0.43 mg/dL (0.2-1.3); CALCIUM 10.2 mg/dL (8.5-10.1); CARBON DIOXIDE 22.9 mmol/L (21.0-32.0); CREATININE - SERUM 2.3 mg/dL (0.6-1.3); POTASSIUM - SERUM 4.6 mmol/L (3.5-5.1); PROTEIN - SERUM 7.8 g/dL (6.4-8.2)
--- NOTE | 2020-07-09 11:35 | NUR ---
PATIENT ANXIOUS, RESTLESS, AND VERY AGITATED. PATIENT CONSTANTLY YELLING. CONSTANTLY ATTEMPTING TO GET UP WITHOUT ASSISTANCE. PATIENT PUT HIMSELF IN FLOOR AND GRABBED STAFF'S ANKLES IN ATTEMPTED TO TRIP THEM WHILE STAFF WAS ATTEMPTING TO PUT PATIENT BACK IN CHAIR. PATIENT CRAWLED OVER TO CABINET AND WAS HITTING CABINET. WHEN STAFF AGAIN TRIED TO HELP HIM UP, HE PUNCH STAFF IN THE THROAT AND PUSHED STAFF AGAINST WALL. HE THEN GRABBED THE CABINET AND WAS ATTEMPTING TO PULL CABINET OVER. PATIENT PUT BACK INTO RECLINER. PATIENT THEN TIPPED OVER LARGE HEAVY TABLE IN DAYROOM. UNABLE TO BE REDIRECTED. PRN KARUNA HI GIVEN.
--- NOTE | 2020-07-09 12:10 | NUR ---
PRN EFFECTIVE. PATIENT RESTING IN RECLINER WITH EYES CLOSED AT THIS TIME.
--- NOTE | 2020-07-09 18:15 | NUR ---
PATIENT YELLING. RESTLESS. AGITATED.CONTINOUSLY ATTEMPTING TO GET UP WITHOUT ASSISTANCE. ATTEMPTING TO SLING CHAIR AROUND. BANGING TABLE WITH FIST. FLIPPED TABLE OVER AGAIN. HITTING STAFF MEMBERS. PULLED PHONE OFF THE WALL IN DAYROOM. UNABLE TO BE REDIRECTED AT THIS TIME. MAGO BECKMAN IM GIVEN.
[2020-07-09 20:00] VITALS: BP 121/78
--- NOTE | 2020-07-09 21:32 | NUR ---
PT IS ALERT AND ORIENTED TO SELF ONLY. ABLE TO FOLLOW SIMPLE COMMANDS. RELATES THAT HE DOESNT WANT AN IV AND WILL DRINK MORE FLUIDS. YELLS OUT INCOMPREHENSIBLE SOUNDS OFTEN. COMPLIANT WITH ALL MEDICATIONS. SOME AGGRESSION WITH REDIRECTION. RESTLESS. DOESNT MAKE EYE CONTACT OFTEN. STATES "I WANT MY PAPERWORK DONE! I WANT MY PAPERWORK DONE!" PT IS SITTING IN [facility] IN THE HALLWAY OUTSIDE THE NURSES STATION. FOR SAFETY.
--- NOTE | 2020-07-10 05:40 | NUR ---
PT YELLING, SHAKING BED RAILS COMBATIVE WITH STAFF. SWINGING AT STAFF AND ATTEMPTS TO BITE STAFF. UNABLE TO REDIRECT. ADMINISTERED PRN GEODON IM PER ORDERS. MONITOR FOR SAFETY.
--- NOTE | 2020-07-10 08:30 | NUR ---
PT SITTING IN CHAIR IN HALLWAY AT THIS TIME. PT IS RESTLESS, COMBATIVE WITH STAFF, YELLING OUT, MAKING THROAT NOISES AND ATTEMPTING TO DIG NAILS INTO STAFF. PT IS CONSTANTLY YELLING. CAN NOT MAKE NEEDS KNOWN. REQUIRES 3 OR MORE STAFF MEMBERS FOR ADLS. PT CONSTANT REDIRECTION WITH BEHAVIORS. PT IS TAKING PO MEDICATIONS COMPLIANT AND ASSESSMENTS. CHAIR ALARM IN PLACE AND ACTIVE. WILL CONT PLAN OF CARE.
--- NOTE | 2020-07-10 09:05 | NUR ---
BANDAIDS APPLIED TO RIGHT ELBOW FOR SELF SKIN TEARS. STAFF CONTS TO REDIRECT PTS BEHAVIOR. UNABLE TO DO SO. PT REMAINS COMBATIVE WITH STAFF.
--- NOTE | 2020-07-10 09:30 | NUR ---
ICU NURSE LISANDRO Sanders RN ATTEMPTED 2X IV STICK UNSUCESSFUL. PT CONTS TO BE COMBATIVE WITH STAFF CALLING STAFF "BITCHES AND BASTARDS." UNABLE TO REDIRECT PTS BEHAVIOR.
--- NOTE | 2020-07-10 10:59 | NUR ---
sheet metal worker helper spoke to patient's about patient's condition and continuing care. sheet metal worker helper reported patient's aggressive behavior and impulse control problems. Patient's voiced no other needs at this time.
--- NOTE | 2020-07-10 13:00 | NUR ---
SPEECH THERAPY CHANGED PT DIET AT THIS TIME TO HONEY THICK LIQUID AND MECH SOFT WITH GROUND MEAT. NURSE WILL MONITOR WILL TOLERATE DIET AT ALL.
--- NOTE | 2020-07-10 13:16 | NUR ---
NURSE REMOVED WRAPPING TO RIGHT ELBOW. NURSE COULD PUT 2 FINGERS UNDER WRAPPING. NURSE NOTED ONE FINGER WITH CYNOSIS. O2 SAT WAS 100% ON ROOM AIR. NURSE WRAPPED WARM WASHCLOTH AROUND FINGERS AND REMOVED DRESSING. COLOR RETURN TO FINGER FAIRLY QUICKLY.
--- NOTE | 2020-07-10 14:10 | NUR ---
PT CONTS TO BE AGGRESSIVE, RESTLESS AND AGITATED BEHAVIOR. PT ATTEMPTED TO BITE, SCRATCH STAFF AND SPIT ON STAFF. HALDOL [address] MENG ORDER. WILL MONITOR FOR EFFECTIVENESS.
--- NOTE | 2020-07-10 14:15 | PN ---
PATIENT:YAMILA CAO MEDICAL RECORD: [id number] LOCATION:[facility] ADMISSION DATE: 07/01/20 PROGRESS NOTE DATE OF SERVICE: 07/09/2020 SUBJECTIVE: The patient's case was discussed with staff. He has no new complaint. OBJECTIVE: The patient denies intent to harm himself or others. He is tolerating his medicines well, but he is quite impaired. He did receive p.r.nSahil Matosdon about lunchtime for agitation. It was effective, but again he is significantly impaired and drowsy. ASSESSMENT: Bipolar disorder. PLAN: Current medicines have been reviewed and will be maintained. I am going to reduce the dose of the Mysoline slightly. His long-term prognosis is guarded. TRANSINT:[id number] Voice Confirmation ID: [id number] DOCUMENT ID: [id number] GARRETT MENG MD at 1415 CC: [id number] DICTATION DATE: 07/09/20 1746 HEALTH CARE SANITARY TECHNICIAN: 07/10/20 0024 ADM IN [place] [id number] [place] [id number]
--- NOTE | 2020-07-10 14:56 | NUR ---
NURSE SPOKE WITH DR. MENG STATED TO CALL MEDICAL DOCTOR TO RECIEVE ORDERS FOR PT TO BE TRANSFERRED TO ICU FOR FURTHER TREATMENT DUE TO ELEVATED BUN AND CREAT LEVELS. NURSE SPOKE WITH DR. SANTOS ABOUT TRANSFER. DR. SANTOS STATED TO NOTIFY DR. MICHAEL TO ACCEPT THE PT IN THE ICU. NURSE CALLED DR. MICHAEL IN REGARDS TO PT TRANSFER. AWAITING CALLBACK.
--- NOTE | 2020-07-10 15:06 | NUR ---
PT CONTS TO BE CONSTANTLY RESTLESS AND UNABLE TO REDIRECT. PRN NOT EFFECTIVE AT THIS TIME.
--- NOTE | 2020-07-10 15:16 | NUR ---
DR. MICHAEL STATED TO TRANFER PT TO ICU. ORDER GIVEN. WILL NOTIFY DR. MENG OF D/C ORDER.
[2020-07-10] MEDS ORDERED: ZYPREXA10 MG PO (15:34)
[2020-07-10] MEDS ORDERED: LITHIUM CARBON300 MG PO (15:34)
[2020-07-10] MEDS ORDERED: LAMICTAL100 MG PO (15:34)
[2020-07-10] MEDS ORDERED: MYSOLINE 50 MG50 MG PO (15:34)
[2020-07-10] MEDS ORDERED: KLONOPIN1 MG PO (15:34)
--- NOTE | 2020-07-10 15:55 | NUR ---
NURSE SPOKE WITH AT THIS TIME IN REGARDS TO TRANFERRING THE PT TO ICU AT THIS TIME. PT BEING TRANSFERRED FOR FLUID HYDRATION DUE TO ACUTE KIDNEY INJURY AND PT NOT BEING ALLOWING STAFF TO PLACE AN IV. ED NURSE WAS ABLE TO PLACE IV 1X ATTEMPT. SHE VOICED UNDERSTANDING ABOUT PT BEING TRANSFERRED TO ICU FOR REHYDRATION. NURSE WILL GIVE HER FURTHER INFORMATION WHEN AVALIABLE.
--- NOTE | 2020-07-10 16:45 | NUR ---
NURSE ADMINISTERED GEODON [address] MENG FOR ANXIETY. PT TOLERATED WELL. WILL REASSESS. PT CONTS TO ATTEMPT TO PLACE SELF ON THE FLOOR. STAFF UNABLE TO REDIRECT PTS BEHAVIOR.
--- NOTE | 2020-07-10 17:45 | NUR ---
PRN NOTED EFFECTIVE AT THIS TIME.
--- NOTE | 2020-07-10 18:28 | NUR ---
PT TRANSFERRED TO MED 2 ROOM 2106 AT THIS TIME WITH ALLEGRA QUINONEZ RN AND HOSPITAL ROOF CEMENT AND PAINT MAKER HELPER TO MED 2 FLOOR. PT WAS VERY RESTLESS AND AGITATED. IV PUMP AND IV IN PLACE AND PATENT. ALL PAPERWORK SENT WITH PT AND ALL BELONGINGS PACKED UP. NURSE CALLED TO PT HORACIO CAO AT THIS TIME. NURSE GAVE HER AN UPDATE ON PTS ROOM AND OUR STAFF WOULD BE ATTENDING TO PT DURING HIS STAY ON MED 2. SHE VERBALIZIED UNDERSTANDING AND VOICED WANTING TO SEE THE PT. NURSE TRANSFERRED TO 2400 TO ASK ABOUT VISITATION TIMES UPSTAIRS. SHE THANKED NURSE AND WOULD SPEAK SOON.
[2020-07-10] MEDS ORDERED: ASPIRIN81 MG (19:22)
== END 2020-07-10 18:00 | disposition short-term general hospital (02) | DRG 885 ==
LOC: D.ER 13:10 → D.PSYCH 18:14
PROVIDERS: Emergency Medicine; Family Medicine; ADMIT Psychiatry & Neurology Psychiatry; ATTEND Psychiatry & Neurology Psychiatry
DX: F32.1 Major depressive disorder, single episode, moderate (principal); I10 Essential (primary) hypertension; I25.10 Atherosclerotic heart disease of native coronary artery without angina pectoris; E78.5 Hyperlipidemia, unspecified; E03.9 Hypothyroidism, unspecified; E86.0 Dehydration; Z95.0 Presence of cardiac pacemaker

== ENCOUNTER 2020-07-10 16:52 | Inpatient (IN) | payer MEDICARE, OTHER ==
[~2020-07-10] VITALS: Ht 180.3 cm; Wt 79.6 kg
[~2020-07-10 16:52] MED LIST changes: +KLONOPIN1 MG PO; +LAMICTAL100 MG PO; +LAMICTAL200 M1; +LITHIUM CARBON300 MG PO; +MYSOLINE 50 MG50 MG; +OPTIVE SENSITI1 EACH EACH EYE; +TOPROL XL100 MG; +ZYPREXA10 MG PO
[2020-07-10 18:45] VITALS: BP 137/57; BMI 24.5
[2020-07-10] MEDS ORDERED: ASPIRIN81 MG (19:22)
--- NOTE | 2020-07-10 20:42 | NUR ---
RECEIVED PATIENT IN ROOM 2106, HE IS AWAKE BUT NOT ORIENTED TO SELF, TIME, PLACE OR SITATION, HE WAS AGITATED AT THE BEGINING OF SHIFT AND INCREASINGLY BECAME OR AGITATED, HIS HS MEDS WERE GIVEN, CRUSHED IN APPLESAUCE. HE WAS ALSO GIVEN HYDROCODONE 10/325 BECAUSE HE WOULD GRIMACE IF HE WAS IN PAIN. BILATERAL SOFT WRIST RESTRAINTS WERE APPLIED @ 2014 DUE TO PATIENT HITTING STAFF AND BITING HIMSELF AND BITING THE IV LINE. HE IS A ONE ON ONE. WILL CONTINUE TO MONITOR
--- NOTE | 2020-07-10 20:52 | NUR ---
PATIENT'S BEHAVIOR AT THIS TIME, HE IS HOLLERING OUT WORDS THAT ARE NOT ABLE TO BE UNDERSTOOD AND HE IS RAISING HIS LEGS IN THE AIR AND HOLDING THEM THERE FOR SECONDS AT A TIME, HE IS ALSO GYRATING HIS PELVIS. HIS EYES HAVE BEEN CLOSED DURING MOST OF HIS BEHAVIOR.
--- NOTE | 2020-07-10 21:00 | NUR ---
HALDOL 5MG IM GIVEN TO LEFT DELTOID FOR PSYCHOTIC BEHAVIOR. WILL MONITOR FOR EFFECTIVENESS.
--- NOTE | 2020-07-10 23:18 | NUR ---
PATIENT HAS BEEN RESTING FOR APPROXIMATLY ONE AND A HALF TO TWO HOURS, HE IS BEGINNING TO GET RESTLESS AT THIS TIME, RESTRAINTS TO WRIST HAVE BEEN CHECKED. HIS HANDS ARE WARM, THEREFORE GOOD CIRCULATION, WILL MONITOR
--- NOTE | 2020-07-10 23:36 | NUR ---
HALDOL 5MG GIVEN IM TO THE LEFT VASTUS LATERALIS FOR AGITATION, GYRATING PELVIC REGION AND HOLLERING OUT. WILL MONITOR FOR EFFECTIVENESS
[2020-07-11] VITALS (7 sets, daily range): BP systolic 107–146; BP diastolic 50–83; Ht 180.3 cm; Wt 79.6 kg
--- NOTE | 2020-07-11 04:09 | NUR ---
PATIENT GIVEN HALDOL 5MG IM FOR SPITTING, GYRATING HIPS, AND SAYING "[facility]" REPEATEDLY.
[2020-07-11 06:46] LABS: ALBUMIN 3.4 g/dL (3.4-5.0); ANION GAP 16.1 mmol/L (8-16); BILIRUBIN - TOTAL 0.34 mg/dL (0.2-1.3); CALCIUM 9.2 mg/dL (8.5-10.1); CARBON DIOXIDE 24.6 mmol/L (21.0-32.0); CREATININE - SERUM 2.8 mg/dL (0.6-1.3); PROTEIN - SERUM 6.1 g/dL (6.4-8.2); THYROID STIMULATING HORMONE 1.92 uIU/mL (0.36-3.74)
[2020-07-11 06:55] LABS: POTASSIUM - SERUM 3.7 mmol/L (3.5-5.1)
--- NOTE | 2020-07-11 07:24 | NUR ---
Rec'd patient this am approx. 7am. He is lying in bed, he is moaning. He has wrist restraints on chong. areas to skin without s/sx of skin breakdown and he can freely move his hands and arms. He has a peripheral IV to his right forearm that is infusing 1/2 NS at 150cc/hr. He is dry from bowel or urine. He has attempted to kick at the night nurse and is attempting to swing his arm at this nurse. This nurse attempts to direct and redirect and provde positive feedback but he will not open his eyes but will push himself down into the bed,thrashing about slinging his leggs over the rail and moaning loudly.
--- NOTE | 2020-07-11 07:49 | NUR ---
AM ROUNDING DONE WITH PATIENT IN BILATERAL SOFT WRIST RESTRAINT AND MITTEN TO LEFT HAND. RIGHT FA PIV OF 1/2 NS INFUSING AT 150 CC/HR. [facility] NURSE AT BEDSIDE. ON ROOM AIR.
[2020-07-11 08:38] LABS: BASOPHILS 0.1 % (0-2); EOSINOPHILS 5.3 % (0-7); HEMOGLOBIN 11.4 g/dL (13.5-17.5); IMMATURE GRANULOCYTES 0.1 % (0-5); LYMPHOCYTE ABS# 1.04 10x3/uL (1.32-3.57); LYMPHOCYTES 15.4 % (15-50); MCH 29.8 pg (26.0-34.0); MCHC 32.8 g/dL (31.0-37.0); MCV 90.9 fL (80.0-100.0); MEAN PLATELET VOLUME 10.6 fL (7.4-10.4); MONOCYTES 9.5 % (2-11); NEUTROPHIL ABS# 4.69 10x3/uL (1.78-5.38); NEUTROPHILS 69.6 % (40-80); PLATELET COUNT 183 10x3/uL (130-400); RBC 3.83 10x6/uL (4.20-6.10); RDW 12.5 % (11.5-14.5); WBC 6.8 10x3/uL (4.8-10.8)
--- NOTE | 2020-07-11 08:39 | NUR ---
Patient up in bed for breakfast. Patient would not swallow well and then he spit his food out onto the bed. He did drink approx. 2-237ml cartons of water and of orange juice. He has been very restless and will trash his body, legs (into the SRs), and will attempt to use his arms/hands to attempt to hit out. He is verbally abusive this am using the terms "bitch" "bastard" and then yelling out. He has no direction or redirection ability. IV continues to infuse and chong. soft wrist restraints in use with releasing and checking his skin and circulation.
[2020-07-11 08:41] LABS: HEMATOCRIT 34.8 % (42.0-54.0)
--- NOTE | 2020-07-11 09:00 | NUR ---
MEDS AND ASSESSMENT IS DONE PER HALFWAY NURSE.
--- NOTE | 2020-07-11 09:50 | NUR ---
Patients spouse Lilliana present and sitting at the bedside. Dr. Richey has been here and assessed patient and visited with patients spouse. Patient has been in bed with his eyes closed and is now sleeping.
--- NOTE | 2020-07-11 11:44 | NUR ---
At approx. 1030, patient rec'd a bed bath, shampoo, and lotion. Geodon Im given for restless behavior, yelling, and inappro. verbal language. He has been moving himself downward in the bed and attempting to exit the bed or he will use his feet to pull hard on the end of the bed. fluids offered. spouse present and assisted with bath.
--- NOTE | 2020-07-11 11:55 | NUR ---
Patient continues to be restless. He managed to move his his and legs and remove his brief and said "I pissed the bed"
--- NOTE | 2020-07-11 13:26 | NUR ---
Patient is lying in bed with eyes closed. V/s and meal held at this date/time because patient is finally resting. His wrist restraints were released and reapplied without problems. Patients spouse is present and at the bedside. Resp. even and unlabored.
--- NOTE | 2020-07-11 14:31 | NUR ---
Patient becomimg restless. yelling and performing the abd. thrust. He is not able to be directed or redirected for these behaviors. Repositioned and offered fluids. Chong wrist restraints released and hands/wrist exercises.Haldol IM given per MD orders.
--- NOTE | 2020-07-11 15:38 | NUR ---
Patients spouse has left for the day. She was wanting to speak with Dr. Harrell and did get a chance to see Dr. Richey this morning. He has been restless all day. He continues to use the body thrust and thrust his body down the bed and will hang his leggs and feet off the end of the bed. Patient is unrestrained often, repositioned, and offered fluids/foods. He continues to make funny noises that resemble a turkey sound.
--- NOTE | 2020-07-11 17:08 | NUR ---
Nurse attempted to assist patient with eating dinner and he started blowing fluids back into the cup and said "I did that to get that all over you". Haldol 5mg IM given. He then attempted to kick this nurse in the head when she bent down to check and tie the restraint.
--- NOTE | 2020-07-11 17:15 | NUR ---
Patient continues to be aggressive both physically and mentally. He will kick at the nurses and attempt to swing his fist. He uses the words "bitches" and "your ass" to the nurses. Patient continues to be medicated with PRN meds per behavior episode. He is restless and thrashing himself about in bed and he can and has been observed to assist to get pulled up in the bed but often times, he will resist and hold onto the siderails pulling back or will press down hard on the end of the bed frame.
--- NOTE | 2020-07-11 17:42 | NUR ---
Patient is blowing and spitting out anything that you put into his mouth.
--- NOTE | 2020-07-11 18:40 | NUR ---
Patient refused 1800 v/s/ He is kicking out and using foul language.
--- NOTE | 2020-07-11 20:30 | NUR ---
PT IN BED, CONFUSED, RESTRAINTS ON PT, RESP EVEN AND UNLABORED, NO DISTRESS NOTED, CL IN REACH. SITTER AT BEDSIDE.
[2020-07-12 05:40] LABS: BASOPHILS 0.2 % (0-2); EOSINOPHILS 5.9 % (0-7); HEMATOCRIT 37.1 % (42.0-54.0); HEMOGLOBIN 11.8 g/dL (13.5-17.5); IMMATURE GRANULOCYTES 0.2 % (0-5); LYMPHOCYTE ABS# 0.97 10x3/uL (1.32-3.57); LYMPHOCYTES 15.9 % (15-50); MCH 29.4 pg (26.0-34.0); MCHC 31.8 g/dL (31.0-37.0); MCV 92.5 fL (80.0-100.0); MEAN PLATELET VOLUME 10.9 fL (7.4-10.4); NEUTROPHIL ABS# 4.13 10x3/uL (1.78-5.38); NEUTROPHILS 67.8 % (40-80); PLATELET COUNT 178 10x3/uL (130-400); RBC 4.01 10x6/uL (4.20-6.10); RDW 12.5 % (11.5-14.5); WBC 6.1 10x3/uL (4.8-10.8)
[2020-07-12 05:41] LABS: ANION GAP 16.4 mmol/L (8-16); CALCIUM 9.4 mg/dL (8.5-10.1); CARBON DIOXIDE 21.9 mmol/L (21.0-32.0); CREATININE - SERUM 2.3 mg/dL (0.6-1.3)
[2020-07-12 05:42] LABS: POTASSIUM - SERUM 4.3 mmol/L (3.5-5.1)
[2020-07-12 08:35] VITALS: BP 110/75
--- NOTE | 2020-07-12 12:40 | NUR ---
I have reviewed this patient and I concur with the Shift Assessment completed by the Licensed Practical Nurse today this shift.
[2020-07-12 19:59] VITALS: BP 128/67
[2020-07-13 00:15] VITALS: BP 157/107
[2020-07-13 04:56] VITALS: BP 145/58
[2020-07-13 06:33] LABS: ANION GAP 15.5 mmol/L (8-16); CALCIUM 9.7 mg/dL (8.5-10.1); CARBON DIOXIDE 22.5 mmol/L (21.0-32.0); CREATININE - SERUM 1.9 mg/dL (0.6-1.3)
--- NOTE | 2020-07-13 07:00 | NUR ---
REPORT RECEIVED. PATINENT IS ALERT/CONFUSED AND IN RESTRAINTS. SITTER AT BEDSIDE. NO S/S OF DISTRESS OBSERVED. RR EVEN AND UNLABORED ON ROOM AIR. RETENTION MANAGER IS CHANGING LINENS. PIV TO RT AC, PATENT, INFUSING 1/2 N2 @ 150ML/HR. NO NEEDS EXPRESSED AT THIS TIME. CL IN REACH, BED LOCKED AND LOWERED. WILL CPOC.
[2020-07-13 07:49] VITALS: BP 150/72
--- NOTE | 2020-07-13 09:23 | NUR ---
PATIENT VERY AGITATED AND IS IN NEED OF A BED BATH. PRN HALDOL ADMINISTERED TO LT VENTROGLUTEAL, PATIENT TOLERATED WELL.
--- NOTE | 2020-07-13 10:37 | NUR ---
ALL RESTRAINTS REMOVED, PATIENT IS LYING ON RIGHT SIDE RESTING WITH EYES CLOSED. BED BATH WAS GIVEN BY AIDE AND LINENS WERE CHANGED. CHARMAINE FROM DETENTION STATES WHEN CURRENT BAG OF FLUIDS IS COMPLETE PATIENT CAN TRANSFER BACK DOWN TO DETENTION.
--- NOTE | 2020-07-13 12:36 | NUR ---
I have reviewed this patient and I concur with the Shift Assessment completed by the Licensed Practical Nurse today this shift.
[2020-07-13 19:52] VITALS: BP 106/48
--- NOTE | 2020-07-13 19:57 | NUR ---
INITIAL ROUNDS COMPLETED AT 1910 HRS. PT SNORING LOUDLY. RESP EVEN AND REG. SITTER AT BEDSIDE. ASSESSMENT COMPLETED AT 1940HRS. PT SEDATED. VSS. LUNGS CTA. PALPABLE PERIPHERAL PULSE.IV TO RAC WITH 1/2NS AT 150CC/HR. IV PATENT. PT [id number]. BILAT LEG RETRAINTS REMOVED AT THAT TIME. BILAT WRIST RESTRIANTSREMOVED AT 1950HRS. SITTER AT BEDSIDE. SR UP X4,CALL LIGHT WITHIN REACH.
--- NOTE | 2020-07-13 21:35 | NUR ---
PTAWAKE AT 2100 HRS. TOOK MEDS CRUSHED IN ENSURE WITHOUT DIFFICULTY. PT BEGAN SWINGING ARMS AT STAFF AND ATTEMPTING TO KICK OUT AT STAFF. PT PLACED IN 4PT RESTRAINTS AT 2135 HRS.
--- NOTE | 2020-07-13 22:31 | NUR ---
PT ATTEMPTING TO SWING AND KICK AT SALES OFFICE ASSISTANT. RESTRAINTS IN USE.
[2020-07-13 23:49] VITALS: BP 119/50
--- NOTE | 2020-07-14 01:49 | NUR ---
HALDOL 5MG IM TO R GLUTEAL GIVEN FOR INCREASED AGITATION.
--- NOTE | 2020-07-14 02:51 | NUR ---
PT PULLING AT RESTRAINTS, ATTEMPTING TO SCOOT OUT OF BED. REPOSITIONED IN BED. SITTER AT BEDSIDE.
[2020-07-14 04:07] VITALS: BP 131/56
--- NOTE | 2020-07-14 04:17 | NUR ---
PT DRANK 240 CC OF THICKEN WATER WITHOUT DIFFICULTY. SITTER AT BEDSIDE.
[2020-07-14 05:25] VITALS: BP 131/56
--- NOTE | 2020-07-14 05:33 | NUR ---
PT UNDERSTANDABLE THIS AM. HAS C/O BACKPAIN. NORCO PO GIVEN.
--- NOTE | 2020-07-14 06:14 | NUR ---
VSS THROUGHOUT NIGHT. CONTINUES TO TRY TO PULLOUT IV,CRAWL OUT OF BED AND KICK OUT AT STAFF. NEEDS MET; WILL CONTINUE TO MONITIOR. SITTER AT BEDSIDE.
[2020-07-14 06:21] LABS: ANION GAP 17.1 mmol/L (8-16); CALCIUM 9.4 mg/dL (8.5-10.1); CREATININE - SERUM 1.7 mg/dL (0.6-1.3); POTASSIUM - SERUM 4.1 mmol/L (3.5-5.1)
[2020-07-14 08:42] VITALS: BP 102/46
[2020-07-14] MEDS ORDERED: LITHIUM CARBON300 MG PO (10:01)
--- NOTE | 2020-07-14 10:20 | PN ---
PATIENT:YAMILA CAO MEDICAL RECORD: [id number] LOCATION:[address] ADMISSION DATE: 07/11/20 PROGRESS NOTE DATE OF SERVICE: 07/10/2020 SUBJECTIVE: The patient's case was discussed with staff. He has no new complaint. OBJECTIVE: The patient is critically ill with an elevated BUN and creatinine. Attempts to hydrate him have been very difficult with him fighting staff and then having to hold him. ASSESSMENT: Bipolar disorder. PLAN: I have discussed the situation with his outpatient psychiatrist and based on that consultation we are going to proceed with administering the lithium in spite of the fact that it is having an adverse effect on his renal functions. Weighing the relative risks and benefit, this is the consensus that it is the appropriate thing to do to bring his behaviors under some sort of control, which they are not at this time. TRANSINT:[id number] Voice Confirmation ID: [id number] DOCUMENT ID: [id number] GARRETT MENG MD at 1020 CC: [id number] DICTATION DATE: 07/10/20 1648 SMUTTER: 07/10/20 1819 ADM IN [facility] [address] [id number]
--- NOTE | 2020-07-14 11:51 | NUR ---
REPORT CALLED TO [facility]. PATIENT BEING TAKEN DOWN VIA BED. AT BEDSIDE.
[2020-07-15] MEDS ORDERED: ROCEPHIN 1 GM/D51 G1 IV (16:51)
== END 2020-07-14 11:52 | DRG 683 ==
LOC: D.M2 → OBSVTIME 17:20 → D.M2 17:20
PROVIDERS: ADMIT Family Medicine; ATTEND Family Medicine
DX: N17.1 Acute kidney failure with acute cortical necrosis (principal); F31.12 Bipolar disorder, current episode manic without psychotic features, moderate; E03.8 Other specified hypothyroidism; E06.3 Autoimmune thyroiditis; I10 Essential (primary) hypertension; I25.10 Atherosclerotic heart disease of native coronary artery without angina pectoris; E78.5 Hyperlipidemia, unspecified; R25.1 Tremor, unspecified; E86.0 Dehydration; Z95.0 Presence of cardiac pacemaker

== ENCOUNTER 2020-07-14 13:21 | Inpatient (IN) | payer MEDICARE, OTHER ==
[~2020-07-14] VITALS: Ht 180.3 cm; Wt 79.6 kg
[~2020-07-14 13:21] MED LIST changes: +ASPIRIN81 MG
--- NOTE | 2020-07-14 16:00 | NUR ---
NEW ADMIT TO DOCTOR MENG ON [facility] FOR AMS. PATIENT TRANSPORTED TO [facility] VIA BED AND ACCOMPANIED BY HOSPITAL STAFF. CONSENTS TO TREAT RECEIVED FROM , HORACIO CAO. FULL CODE STATUS RECEIVED FROM HORACIO. PATIENT IS VERY CONFUSED, COMBATIVE, AND AGGRESSIVE, UNABLE TO FOLLOW DIRECTIONS AND UNABLE TO BE REDIRECTED. UNABLE TO COMPLETE ADMISSION ASSESSMENT, VITAL SIGNS, AND WEIGHT AT THIS TIME DUE TO PATIENT BEING SO COMBATIVE. PRN HALDOL 5 MG IM GIVEN FOR PSYCHOTIC UNSAFE BEHAVIOR AT 1320. PRN HALDOL NOT EFFECTIVE. PATIENT WAS STILL RESTLESS, YELLING OUT, COMBATIVE, AND CLIMBING OUT OF BED. PRN GEODON 20 MG IM GIVEN FOR AGITATION AT 1504. PRN GEODON SLIGHTLY EFFECTIVE. PATIENT IS NO LONGER COMBATIVE BUT IS STILL AGITATED. PATIENT IS VERY RESTLESS AND CLIMBING OUT OF BED. CORNELIUS ALARM ON AND WORKING. SITTER AT BEDSIDE.
[2020-07-14 20:00] VITALS: BP 131/70
[2020-07-14 21:28] LABS: BILIRUBIN NEGATIVE (NEGATIVE); KETONE MODERATE mg/dL (NEGATIVE); NITRITE NEGATIVE (NEGATIVE); UROBILINOGEN NORMAL mg/dL (< 2)
[2020-07-14 21:29] LABS: WHITE CELLS - URINE OCC HPF (0-1)
[2020-07-14 21:30] LABS: SQUAMOUS EPITHELIAL OCC HPF (0-4)
[2020-07-14 22:06] LABS: BASOPHILS 0.2 % (0-2); EOSINOPHILS 0.4 % (0-7); HEMATOCRIT 31.1 % (42.0-54.0); HEMOGLOBIN 10.4 g/dL (13.5-17.5); LYMPHOCYTES 2.6 % (15-50); MCH 29.9 pg (26.0-34.0); MCHC 33.5 g/dL (31.0-37.0); MEAN PLATELET VOLUME 8.4 fL (7.4-10.4); MONOCYTES 8.6 % (2-11); NEUTROPHILS 88.2 % (40-80); PLATELET COUNT 177 10x3/uL (130-400); RBC 3.48 10x6/uL (4.20-6.10)
[2020-07-14 22:07] LABS: MCV 89.2 fL (80.0-100.0)
[2020-07-14 22:09] LABS: INFLUENZA TYPE A NEGATIVE (NEGATIVE); INFLUENZA TYPE B NEGATIVE (NEGATIVE); SARS-CoV-2 ANTIGEN NEGATIVE- SARS-COV-2 (NEGATIVE)
[2020-07-14 22:13] LABS: ANION GAP 16.3 mmol/L (8-16); CARBON DIOXIDE 21.8 mmol/L (21.0-32.0); CREATININE - SERUM 1.8 mg/dL (0.6-1.3); POTASSIUM - SERUM 4.1 mmol/L (3.5-5.1)
--- NOTE | 2020-07-14 23:00 | NUR ---
RESTLESS IN BED. INCREASING ANXIETY AND AGITATION. PRN GEODON 20 MG IM GIVEN FOR AGITATION.
--- NOTE | 2020-07-14 23:00 | NUR ---
RECEIVED IN BEDROOM. RESTLESS IN BED. UNABLE TO VERBALIZE NEEDS. ELEVATED TEMP OF 101.4 AND O2 SAT OF 88%. DOCTOR FERNANDA CALLED. NEW ORDERS RECEIVED. CBC, BMP, COVID TEST, FLU A&B, O2@2L, BLOOD CULTURES X2, U/A AND CULTURE, CHEST X-RAY AND PRN TYLENOL 650 MG PO EVERY 4 HOURS FOR FEVER AND CALL IF TEMP DOES NOT GO DOWN. ENCOURAGE PT TO VOICE NEEDS. CONTINUES TO BE RESTLESS IN BED. IV INFUSING. CONTINUE PLAN OF CARE.
[2020-07-15 00:31] VITALS: BP 131/70
--- NOTE | 2020-07-15 00:56 | NUR ---
RESTING QUIETLY IN A RECLINER OUTSIDE OF NURSES STATION.
--- NOTE | 2020-07-15 01:30 | NUR ---
BECAME RESTLESS. ATTEMPTS TO ROLL OUT OF RECLINER. TRANSFERRED TO BED FOR SAFETY.
--- NOTE | 2020-07-15 02:09 | NUR ---
INREASING RESTLESSNESS. YELLING OUT. ATTEMPTS TO PULL AT IV LINE. TRYING TO CLIMB OUT HEAD OF BED. PRN HALDOL 5 MG IM GIVEN FOR UNSAFE PSYCHOTIC BEHAVIOR. DISCONNECTED IV.
--- NOTE | 2020-07-15 03:35 | NUR ---
CONTINUES TO BE RESTLESS. YELLING OUT.
--- NOTE | 2020-07-15 04:31 | NUR ---
RESTING EYES CLOSED. RESTLESS AT TIMES. YELLING OUT AT TIMES.
[2020-07-15 06:18] LABS: BASOPHILS 0.2 % (0-2); EOSINOPHILS 0.1 % (0-7); HEMATOCRIT 31.1 % (42.0-54.0); HEMOGLOBIN 10.6 g/dL (13.5-17.5); LYMPHOCYTES 3.8 % (15-50); MCH 30.6 pg (26.0-34.0); MCHC 34.3 g/dL (31.0-37.0); MCV 89.4 fL (80.0-100.0); MEAN PLATELET VOLUME 8.6 fL (7.4-10.4); MONOCYTES 8.5 % (2-11); NEUTROPHILS 87.4 % (40-80); PLATELET COUNT 160 10x3/uL (130-400); RBC 3.47 10x6/uL (4.20-6.10)
[2020-07-15 06:32] LABS: ALBUMIN 3.3 g/dL (3.4-5.0); ANION GAP 16.4 mmol/L (8-16); BILIRUBIN - TOTAL 0.58 mg/dL (0.2-1.3); CALCIUM 10.3 mg/dL (8.5-10.1); CARBON DIOXIDE 25.2 mmol/L (21.0-32.0); POTASSIUM - SERUM 4.6 mmol/L (3.5-5.1); PROTEIN - SERUM 6.3 g/dL (6.4-8.2)
[2020-07-15 07:14] VITALS: BP 102/50
--- NOTE | 2020-07-15 07:15 | NUR ---
FEVER 100.2 AT 0530 PRN TYLENOL 650 MG PO GIVEN. RECHECKED TEMP AT 0630 AND INCREASE TO 103.1. DR MICHAEL CALLED. NEW ORDERS RECEIVED. ROCEPHIN 1 MG IV EVERY 24 HRS FOR 7 DAYS, PRN TYLENOL 650 MG RC EVERY 4 HOURS FOR FEVER, LACTIC ACID AND PT WITH INR ORDERED.
[2020-07-15 07:36] VITALS: BP 100/60
[2020-07-15 07:48] LABS: INR 1.57 (0.85-1.17); PROTIME 17.4 SECONDS (11.6-15.0)
--- NOTE | 2020-07-15 09:15 | NUR ---
FEVER OF 101.7 AX AT THIS TIME.
--- NOTE | 2020-07-15 14:00 | NUR ---
SPEECH THERAPY PRESENT TO EVAL PATIENT. SPEECH RECOMMENDED PATIENT BE N.P.O. AT THIS TIME DUE TO UNABLE TO PROPERLY EVALUATE PATIENT. PATIENT UNCOOPERATIVE AT THIS TIME AND UNABLE TO SWALLOW, POCKETING FOOD PATIENT WILL BE N.P.O. UNTIL FURTHER ORDERS.
[2020-07-15 15:09] VITALS: BP 104/58
--- NOTE | 2020-07-15 15:09 | NUR ---
V/S TAKEN. B/P-104/58, P- 87, O2- 98% ON 2L VIA N/C, T- 103.8 AND R-20. TYLENOL 650MG SUPP RECTAL GIVEN PER ORDER FOR FEVER. WILL CPOC.
[2020-07-15 15:27] VITALS: Ht 180.3 cm; Wt 79.6 kg
--- NOTE | 2020-07-15 16:22 | NUR ---
MARIE FROM LAB CALLED AND REPORTED POSITIVE BLOOD CULTURES GRAM-POSITIVE COCCI AT THIS TIME. DR. MICHAEL NOTIFIED. NEW ORDERS TO TRANSFER PATIENT TO ICU. NEW ORDERS NOTED. VANCOMYCIN 1 MG EVERY 12 HOURS IV PHARMACY TO DOSE. GEODON 20MG Q 4 PRN AGITATION, DO NOT EXCEED 60MG PER 24 HOURS. HALDOL 5MG IM 2 HOUR PRN FOR ONSET PSYCHOTIC UNSAFE BEHAVIORS. ALL P.O. MEDICATIONS ON HOLD UNTIL FURTHER ORDER PER ATTENDING MD/ SPEECH. 1/2 N/S AT 150ML/HR. CONTACT ISOLATION FOR POSSIBLE MRSA. HORACIO NOTIFIED OF TRANSFER AND STATUS CHANGE AT THIS TIME. CHARMAINE HARRIS APRN NOTIFIED AND DC ORDER NOTED. CREDIT FRONT OFFICE DEVELOPER NOTIFIED AND ADMISSION ORDERS FAXED AT THIS TIME. AWAITING ON BED AT THIS TIME.
[2020-07-15] MEDS ORDERED: ROCEPHIN 1 GM/D51 G1 IV (16:51)
== END 2020-07-15 20:01 | disposition short-term general hospital (02) | DRG 885 ==
LOC: D.PSYCH 13:21 → D.ICU 07-15 19:26 → D.PSYCH 07-15 20:01
PROVIDERS: Family Medicine; ADMIT Psychiatry & Neurology Psychiatry; ATTEND Psychiatry & Neurology Psychiatry
DX: F31.12 Bipolar disorder, current episode manic without psychotic features, moderate (principal); N17.0 Acute kidney failure with tubular necrosis; E78.5 Hyperlipidemia, unspecified; E03.9 Hypothyroidism, unspecified; I10 Essential (primary) hypertension; F31.9 Bipolar disorder, unspecified; E86.0 Dehydration; Z95.0 Presence of cardiac pacemaker; R50.9 Fever, unspecified; I25.10 Atherosclerotic heart disease of native coronary artery without angina pectoris; E03.8 Other specified hypothyroidism; E06.3 Autoimmune thyroiditis

== ENCOUNTER 2020-07-15 18:02 | Inpatient (IN) | payer MEDICARE, OTHER ==
[2020-07-15] VITALS (9 sets, daily range): BP systolic 108–129; BP diastolic 51–81; BMI 24.3
[~2020-07-15] VITALS: Ht 180.3 cm; Wt 76.2 kg
[~2020-07-15 18:02] MED LIST changes: +ROCEPHIN 1 GM/D51 G1 IV
[2020-07-16] VITALS (24 sets, daily range): BP systolic 92–163; BP diastolic 53–125; Ht 180.3 cm; Wt 76.2 kg
--- NOTE | 2020-07-16 00:45 | NUR ---
FERNANDA PAGED REGARDING PT TEMP 103.3 AND SEVERE SHAKING/SHIVERING. ORDERS REC'D FOR VALIUM AND TYLENOL, SEE MAR.
--- NOTE | 2020-07-16 02:59 | NUR ---
PT CONTINUES TO BE AGITATED AND RESTLESS, TRYING TO GET OOB WITH BILATERAL WRIST RESTRAINTS IN PLACE, PULLING AT LINES. PRN MEDICATION GIVEN PER ORDERS. BED ALARM ON. PT REPOSTIIONED. ROOM VISIBLE FROM NURSES STATION. CPOC.
[2020-07-16 05:39] LABS: CREATININE - SERUM 1.7 mg/dL (0.6-1.3); VANCOMYCIN - RANDOM 10.4 ug/mL (10.0-20.0)
--- NOTE | 2020-07-16 16:52 | NUR ---
Pt had not urinated all day. Pt was bladder scanned and it showed >999 mls. The Pt was repositioned to help urinate, urinal and external cath were attempted with no success. Dr. Richey called and ordered singer cath to be placed. singer placed and got good urine return.
[2020-07-17] VITALS (22 sets, daily range): BP systolic 111–185; BP diastolic 66–99
--- NOTE | 2020-07-17 02:40 | NUR ---
I have reviewed this patient and I concur with the Shift Assessment completed by the Licensed Practical Nurse today this shift.
[2020-07-17 05:04] LABS: BASOPHILS 0.2 % (0-2); EOSINOPHILS 1.5 % (0-7); HEMATOCRIT 31.1 % (42.0-54.0); HEMOGLOBIN 10.3 g/dL (13.5-17.5); LYMPHOCYTES 6.2 % (15-50); MCH 29.9 pg (26.0-34.0); MCHC 33.2 g/dL (31.0-37.0); MEAN PLATELET VOLUME 8.4 fL (7.4-10.4); MONOCYTES 9.1 % (2-11); PLATELET COUNT 150 10x3/uL (130-400); RBC 3.45 10x6/uL (4.20-6.10); RDW 13.4 % (11.5-14.5); WBC 9.7 10x3/uL (4.8-10.8)
[2020-07-17 05:20] LABS: ANION GAP 16.1 mmol/L (8-16); CALCIUM 8.9 mg/dL (8.5-10.1); CARBON DIOXIDE 22.7 mmol/L (21.0-32.0); CREATININE - SERUM 1.6 mg/dL (0.6-1.3); MAGNESIUM - SERUM 2.1 mg/dL (1.8-2.4); VANCOMYCIN - RANDOM 4.3 ug/mL (10.0-20.0)
[2020-07-17 05:25] LABS: POTASSIUM - SERUM 3.8 mmol/L (3.5-5.1)
--- NOTE | 2020-07-17 10:00 | NUR ---
Pt resting in bed and no acute distress noted. Pt has been yelling and mumbling all morning. Dr. Richey has seen Pt and stated that he was going to contact the Pt's and update her on his condition.
--- NOTE | 2020-07-17 13:29 | NUR ---
Nutrition consult: Pt failed swallow evaluation and needs nutrition support. Pt without NGT Paged Dr. Richey and nurse received order to place NGT RDN will order Osmolite 1.5 to start @ 15 ml/hr with gradual increase to goal rate of 60 ml/hr with 100 ml H2O flush q 4 hours to meet 75-100% of estimated nutritional needs. RDN will follow-up on pts progress 07/18/20
--- NOTE | 2020-07-17 22:30 | NUR ---
NG TUBE 14FR PLACED IN RIGHT NARE, SECURED. PLACEMENT VERIFIED BY AUSCULTATION. CONNECTED TO INTERMEDIATE SUCTION. PT TOLERATED WELL.
--- NOTE | 2020-07-17 23:08 | NUR ---
BOTH EYES EDEMATOUS
--- NOTE | 2020-07-17 23:32 | NUR ---
I have reviewed this patient and I concur with the Shift Assessment completed by the Licensed Practical Nurse today this shift.
--- NOTE | 2020-07-17 23:40 | NUR ---
TUBE FEED STARTED AT 15ML/HR WITH 100ML FLUSH Q 4HRS.
[2020-07-18] VITALS (24 sets, daily range): BP systolic 104–169; BP diastolic 56–99
[2020-07-18 04:48] LABS: BASOPHILS 0.4 % (0-2); HEMATOCRIT 25.9 % (42.0-54.0); HEMOGLOBIN 8.4 g/dL (13.5-17.5); LYMPHOCYTES 10.1 % (15-50); MCH 30.1 pg (26.0-34.0); MCHC 32.6 g/dL (31.0-37.0); MEAN PLATELET VOLUME 8.5 fL (7.4-10.4); MONOCYTES 8.2 % (2-11); NEUTROPHILS 76.3 % (40-80); PLATELET COUNT 137 10x3/uL (130-400)
[2020-07-18 05:00] LABS: MCV 92.5 fL (80.0-100.0); WBC 5.9 10x3/uL (4.8-10.8)
[2020-07-18 06:01] LABS: ANION GAP 12.7 mmol/L (8-16); CALCIUM 8.9 mg/dL (8.5-10.1); CARBON DIOXIDE 24.6 mmol/L (21.0-32.0); CREATININE - SERUM 1.3 mg/dL (0.6-1.3); MAGNESIUM - SERUM 2.2 mg/dL (1.8-2.4); POTASSIUM - SERUM 3.3 mmol/L (3.5-5.1); VANCOMYCIN - RANDOM 17.5 ug/mL (10.0-20.0)
--- NOTE | 2020-07-18 12:43 | NUR ---
Nutrition follow-up: Pt now NPO after pulling out NGT x 2. Nurse reports will replace this morning and restart TF with increase to goal rate of 55 ml/hr Labs reviewed Wt: 174# Dr. Richey ordered another swallow evaluation due to pt more alert today. RDN will follow-up on pts progress toward nutrition goals: 07/21/20
[2020-07-19] VITALS (24 sets, daily range): BP systolic 134–189; BP diastolic 61–112
--- NOTE | 2020-07-19 04:00 | NUR ---
PT HAS REQUIRED FREQ REPOSITIONING UP IN BED. CONT IN SOFT BILATERAL WRIST RESTRAINTS FOR PROTECTION OF GUARDADO AND IV. HAVE GIVEN GEODON 20 MG IM W/O MUCH EFFECT, STILL HOLLERING. WILL ANSWER APPROPRIATELY WHEN ASKED A QUESTION DIRECTLY, IE DO YOU KNOW WHAT YOU ARE SAYING? HE'LL REPLY 'I DON'T REALLY KNOW'. HAVE ALSO GIVEN ATIVAN WITH LITTLE EFFECT. WILL MONITOR FOR SAFETY.
[2020-07-19 05:10] LABS: BASOPHILS 0.3 % (0-2); EOSINOPHILS 4.6 % (0-7); HEMATOCRIT 28.6 % (42.0-54.0); HEMOGLOBIN 9.6 g/dL (13.5-17.5); LYMPHOCYTES 12.7 % (15-50); MCH 29.8 pg (26.0-34.0); MCHC 33.6 g/dL (31.0-37.0); MEAN PLATELET VOLUME 8.5 fL (7.4-10.4); MONOCYTES 8.1 % (2-11); NEUTROPHILS 74.3 % (40-80); RBC 3.22 10x6/uL (4.20-6.10); RDW 13.6 % (11.5-14.5); WBC 7.2 10x3/uL (4.8-10.8)
[2020-07-19 05:14] LABS: MCV 88.8 fL (80.0-100.0); PLATELET COUNT 172 10x3/uL (130-400)
[2020-07-19 05:25] LABS: CALCIUM 8.9 mg/dL (8.5-10.1); CARBON DIOXIDE 23.1 mmol/L (21.0-32.0); CREATININE - SERUM 1.2 mg/dL (0.6-1.3); MAGNESIUM - SERUM 2.2 mg/dL (1.8-2.4); VANCOMYCIN - RANDOM 26.1 ug/mL (10.0-20.0)
[2020-07-19 05:27] LABS: ANION GAP 13.7 mmol/L (8-16); POTASSIUM - SERUM 3.8 mmol/L (3.5-5.1)
--- NOTE | 2020-07-19 16:24 | NUR ---
PATIENT OPENS EYES AT TIMES, TRIES TO MAKE EYE CONTACT, SOUNDS LIKE HE IS SAYING HELP ME HELP ME AT TIMES. DOES ACTUALLY VERBALIZE WORDS. STATES HE HAS CHRONIC BACK PAIN. TRYING MULTIPLE POSITIONING WITH PILLOWS FOR PAIN RELIEF OF BACK, PILLOWS TO BACK, KNEES BENT, BOTH SIDES. IV PATENT RIGHT UPPER ARM. NO SWELLING OR REDNESS NOTED INFUSING WITH D51/2NS AT 100ML HOUR. GUARDADO PATENT, REMOVED PATIENT HAND SEVERAL TIMES FROM GUARDADO TUBING. RESTRAINTS REMOVED. TO REST WRIST WHILE NURSES IN ROOM. ORAL CARE DONE. 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 MOVES SELF ALL OVER THE BED. HEEL PROTECTORS ON, AND REPLACES NUMBEROUS TIMES TODAY. RESTING AT TIMES. SLEEP APNEA NOTED.OXYGEN APPLIED AT 2 LITERS
--- NOTE | 2020-07-19 19:37 | NUR ---
BEDSIDE REPORT RECEIVED, PT IN BED WITH EYES CLOSED, DOES NOT RESPOND TO QUESTIONS OR NAME, DID NOT RESIST REPOSTIONING. PT MOANING AT TIMES. 02 VIA NC @3L, 20G TO RUE WITH D5 1/2NS WITH 20MEQK INFUSING @ 100ML/HR. LUNGS COURSE AND EDEMA NOTED TO SCLERA. GUARDADO IN PLACE WITH SMITHA COLORED URINE. BILAT WRIST RESTRAINTS WITH RADIAL PULSES PALPABLE. NO ACUTE DISTRESS NOTED, WILL CONT TO ASSESS.
--- NOTE | 2020-07-19 21:04 | NUR ---
PT WITH INCREASED AGGITATION AND RESTLESSNESS, ATTEMPTING TO GET OOB, UNABLE TO COMMUNICATE NEEDS, ATTEMPTED TO POSTION FOR COMFORT, GAVE ORAL CARE, GAVE SCHEDULED VALIUM, PT PERSISTS IN RESTLESSNESS, PRN GEODON GIVEN. WILL CONT TO MONITOR.
[2020-07-20] VITALS (24 sets, daily range): BP systolic 128–175; BP diastolic 59–104
--- NOTE | 2020-07-20 00:37 | NUR ---
CHG AND SOAP AND WATER BATH GIVEN, LINENS AND GOWN CHANGED. BARRIER CREAM AND POWDER TO GROIN, STAT LOCK REPLACED. PT GIVEN PRN ATIVEN FOR RESTLESSNESS, YELLING OUT AND PULLING ON GUARDADO. RESTRAINTS SECURED. 20G PIV STARTED TO LEFT WRIST, GOOD BLOOD RETURN NOTED. WILL CONT TO MONITOR.
[2020-07-20 06:13] LABS: CREATININE - SERUM 1.4 mg/dL (0.6-1.3); VANCOMYCIN - RANDOM 40.2 ug/mL (10.0-20.0)
--- NOTE | 2020-07-20 06:22 | NUR ---
PT APPEARS SLEEPING, LETHARGIC. REPOSTIONED. ORAL CARE PREFORMED. RESP EVEN/UNLABORED. NO DISTRESS NOTED, WILL CONT TO MONITOR AND REPORT TO ONCOMING R.N.
--- NOTE | 2020-07-20 08:00 | NUR ---
PATIENT RESTING COMFORTABLY NO DISTRESS. ALLOWING PATEINT TO REST
[2020-07-20 08:46] LABS: ALBUMIN 2.7 g/dL (3.4-5.0); ANION GAP 19.9 mmol/L (8-16); BILIRUBIN - TOTAL 0.77 mg/dL (0.2-1.3); CALCIUM 9.4 mg/dL (8.5-10.1); CARBON DIOXIDE 18.4 mmol/L (21.0-32.0); CREATININE - SERUM 1.5 mg/dL (0.6-1.3); POTASSIUM - SERUM 4.3 mmol/L (3.5-5.1); PROTEIN - SERUM 6.3 g/dL (6.4-8.2)
--- NOTE | 2020-07-20 14:43 | NUR ---
PATIENT WILL OPEN EYES AT REQUEST. SCREAMING OUT NO VERBAL WORDS UNDERSTANDABLE. LIFTING BODY UP, PULLING ON GOWN AND LEADS. RESTRAINTS REMOVED FOR REPOSITIONING, GOOD HAND RETAIL AND PROMOTIONS COORDINATOR AND STRENGTH IN LEGS. OXYGEN REMOVED PULSE OX 100%. ORAL CARE DONE. SUCTION SPUTUM FROM MOUTH PATIENT WILL SPIT. TALKED WITH . CALLED [facility] ABOUT LEAVING A NOTE TO CALL TOMORROW. GUARDADO CATH PATENT. IV LEFT WRIST WITHOUT REDNESS OR SWELLING INFUSING WITH D51/2NS WITH 20 KCL AT 100 ML/HOUR. SCLERA EDEMA RIGHT EYE NOTED.
--- NOTE | 2020-07-20 18:00 | NUR ---
MOANING LOUDLY AT TIMES, MEDS GIVEN, REPOSITIONED. ORAL CARE DONE. NO SKIN BREAKDOWN NOTED. RAW BETWEEN LEGS. WILL ANSWER "YES" BUT NO OTHER UNDERSTANDABLE WORDS SPOKEN. WANTING TO TALK TO DR. MENG, SKILLED NURSING NOTIFIED. HEEL PROTECTORS REAPPLIED NEEDED. IV PATENT NO REDNESS OR SWELLING.
--- NOTE | 2020-07-20 20:26 | NUR ---
BEDSIDE SHIFT REPORT RECEIVED AT 1900, PT RESTLESS AND MOANING INCOHERENTLY, DIAPHORETIC, REPOSTIONED AND REMOVED SHEET, TEMP 100.1, PLACED ICEPACK TO FOREHEAD, WILL RE-ASSESS AND GIVE TYLENOL IF NEEDED. PT OPENS EYES TO VOICE, DOES NOT REPOND APPROPRIATELY. ORAL CARE PREFORMED AND PT SAT UP AT 90 DEGREES, ATTEMPTED TO GIVE LITHUIM IN PUDDING, PT SWALLOWED PART OF DOSE BUT UNABLE TO FINISH, MOUTH CLEANED OUT AND PT REPOSTIONED. 20G PIV TO MIGUEL SL, 20G TO LEFT WRIST WITH D51/2NS WITH 20MEQ K+ INFUSING AT 100ML/HR. IV SITES PATENT. BILAT WRIST RESTRAINTS IN PLACE WITH STRONG RADIAL PULSES. GUARDADO CATH WITH CLEAR YELLOW URINE. RESP EVEN/UNLABORED. BED ALARM ACTIVATED. WILL CONT TO MONITOR.
--- NOTE | 2020-07-20 22:12 | NUR ---
PT APPEARS SLEEPING, 02 VIA NC @2L PLACED FOR SP02 OF 90% ON ROOM AIR. WILL ALLOW PT TO REST, RESP EVEN/UNLABORED, NO DISTRESS NOTED.
[2020-07-21] VITALS (24 sets, daily range): BP systolic 135–193; BP diastolic 65–110
--- NOTE | 2020-07-21 01:39 | NUR ---
PT KICKING LEGS AND MOANING LOUDLY, WHILE PT AWAKE, GAVE FULL BED BATH WITH SOAP, WATER AND CHG, GOWN AND LINEN CHANGE. PT ATTEMPTED TO SAY NAME WHEN ASKED. WHILE REPOSTIONING, PT MADE FIST BUT DID NOT ATTEMPT TO HIT NURSING STAFF AFTER INSTRUCTED NOT TO. DIFFICULT TO UNDERSTAND PT WITH ATTEMPTS TO SAY WORDS. RESP EVEN/UNLABORED. GAVE PRN HALDOL TO ASSIST PT TO CALM AND REST. VSS, WILL ATTEMPT TO MONITOR.
--- NOTE | 2020-07-21 12:38 | NUR ---
PATIENT HAVING PERIODS OF SLEEP APNEA WHICH HE HAS AA HX OF THIS ALREADY. DR. MICHAEL CALLED AND DR. FU CONSULTED AND ORDERS NOTED. PATIENT WAKING UP AND MOVING ALL EXTREMITIES.
--- NOTE | 2020-07-21 13:08 | NUR ---
Nutrition follow-up: Pt NPO after pulling out NGT x 3; now with some nasal injury per nurse Spoke with Dr. Richey and will start ProcalAmine PPN @ 100 ml/hr Labs reviewed; will have to monitor pts renal function closely due to Na, Cl Cr elevated at this time. GFR: 48 Wt: 176# Pt remains in isolation ProcalAmine PPN @ 100 ml/hr provides: 588 kcal (25-30% est kcal needs) 72 gm protein (90-114% est protein needs) RDN will follow-up: 07/22/20
[2020-07-22] VITALS (24 sets, daily range): BP systolic 147–196; BP diastolic 64–98
[2020-07-22 05:10] LABS: BASOPHILS 0.4 % (0-2); EOSINOPHILS 5.7 % (0-7); HEMATOCRIT 32.5 % (42.0-54.0); HEMOGLOBIN 10.7 g/dL (13.5-17.5); LYMPHOCYTES 11.2 % (15-50); MCH 29.3 pg (26.0-34.0); MCV 88.6 fL (80.0-100.0); MEAN PLATELET VOLUME 8.8 fL (7.4-10.4); MONOCYTES 8.9 % (2-11); NEUTROPHILS 73.8 % (40-80); RBC 3.67 10x6/uL (4.20-6.10); RDW 13.6 % (11.5-14.5); WBC 8.4 10x3/uL (4.8-10.8)
[2020-07-22 05:24] LABS: PLATELET COUNT 261 10x3/uL (130-400)
[2020-07-22 05:46] LABS: ALBUMIN 2.7 g/dL (3.4-5.0); BILIRUBIN - TOTAL 0.47 mg/dL (0.2-1.3); CALCIUM 9.2 mg/dL (8.5-10.1); CREATININE - SERUM 1.3 mg/dL (0.6-1.3); MAGNESIUM - SERUM 2.1 mg/dL (1.8-2.4); PHOSPHOROUS 3.2 mg/dL (2.5-4.9); PROTEIN - SERUM 5.6 g/dL (6.4-8.2)
--- NOTE | 2020-07-22 10:06 | NUR ---
NEW IV STARTEDLEFT AC 20 CELESTE. MEDICATIONS GIVEN TO HELP KEEP PATIENT CALM. FREQUENT ORAL CARE DONE AND ORAL SX WELL.
[2020-07-23] VITALS (22 sets, daily range): BP systolic 101–191; BP diastolic 57–112
[2020-07-23 09:59] LABS: ALBUMIN 2.3 g/dL (3.4-5.0); BILIRUBIN - TOTAL 0.34 mg/dL (0.2-1.3); CALCIUM 9.3 mg/dL (8.5-10.1); CREATININE - SERUM 1.2 mg/dL (0.6-1.3); MAGNESIUM - SERUM 2.3 mg/dL (1.8-2.4); PROTEIN - SERUM 5.2 g/dL (6.4-8.2)
[2020-07-23 10:15] LABS: BASOPHILS 0.4 % (0-2); EOSINOPHILS 6.9 % (0-7); HEMATOCRIT 28.4 % (42.0-54.0); HEMOGLOBIN 9.5 g/dL (13.5-17.5); LYMPHOCYTES 13.3 % (15-50); MCH 29.6 pg (26.0-34.0); MCHC 33.3 g/dL (31.0-37.0); MCV 88.9 fL (80.0-100.0); MEAN PLATELET VOLUME 8.2 fL (7.4-10.4); MONOCYTES 7.5 % (2-11); NEUTROPHILS 71.9 % (40-80); PLATELET COUNT 261 10x3/uL (130-400); RDW 13.4 % (11.5-14.5); WBC 6.6 10x3/uL (4.8-10.8)
--- NOTE | 2020-07-23 12:36 | NUR ---
Nutrition reassessment: Pt discussed during IDT team rounds. Pt sleeping, lethargic due to medication ProcalAmine PPN now infusing @ 75 ml/hr due to increased Na. D5w started @ 50 ml/hr Labs reviewed Wt: 174# Estimated needs remain the same as initial assessment. Nutrition diagnosis: Inadequate oral intake R/T lethargy AEB pt is not safe for oral intake. Pt has pulled out NGT for TF x 3 with trauma to nare. Nutrition goals: - Meet est nutritional needs with nutrition support until metation improved and oral diet safe. - Meet est fluid needs - Stable dry wt Nutrition interventions: ProcalAmine @ 75 ml/hr + D5W at 50 ml/hr providin kcal (27-33% est kcal needs) 54 gm protein (68-86% est protein needs) Na is now trending down with decrease in ProcalAmine rate. Pt is not meeting estimated nutritional needs. Recommend PEG tube placement and nutrition support started for long-term nutrition support. RDN follow-up: 07/25/20
--- NOTE | 2020-07-23 13:00 | NUR ---
PATIENT WOKE UP AND ANY MEDICATION I HAD THAT COULD BE GIVEN WAS TO CALM PATIENT DOWN. PATIENT HAD GUARDADO TUBING IN HANDS AND PULLING ON IT. IV INFUSING LEFT ARM AT THIS TIME.
--- NOTE | 2020-07-23 15:22 | DS ---
PATIENT:YAMILA CAO :43 MEDICAL RECORD: [id number] DISCHARGE SUMMARY ADMISSION DATE: 07/15/20 DISCHARGE DATE: DATE OF ADMISSION: 07/15/2020. DATE OF DISCHARGE: 07/16/2020. IDENTIFYING DATA: The patient is a 74-year-old male and he was admitted to the hospital on a voluntary basis. CHIEF COMPLAINT: Agitation. HISTORY OF PRESENT ILLNESS: The patient has a history of being wildly manic. He was transferred back to [facility], an acute care hospital after an admission on the medical unit for dehydration where he needed one-on-one care on the medical floor. He received IV fluids. He had to be restrained to prevent hurting himself and dislodging the IV. He was returned back to [facility], an acute care hospital on 07/14/2020. In [place] his IV fluids were continued. He developed a sudden onset of fever of 101.5, but was asymptomatic. He had no cough, congestion or odor. His labs done 07/14/2020 showed RBC count of 10, H&H of 10.4/31.1, 88% neutrophils. BUN and creatinine 26/1.8, glucose 122. He had a rapid influenza A and B, which were both negative. His SARS antigen was negative. His urinalysis was negative for nitrites with occasional urine WBC. Chest x-ray showed no acute cardiopulmonary process. On 07/15/2020, his temperature was 103.1. He was started on Tylenol suppositories. His lactate acid was 1.7. His WBC count 9.0, BUN and creatinine 26/2.0. The patient was not swallowing or eating. He appeared dehydrated. He was on half normal saline at 150 mL per hour. On 07/15/2020, he was started on Rocephin 1 gram IV daily. His chest x-ray was negative. His blood cultures grew GPC on 07/15/2020 and vancomycin was added. He continued to have fever and restless, started feeling lethargic and it was decided to transfer him back to the acute floor on 07/15/2020. His past medical history was significant for hyperlipidemia, hypothyroidism, and hypertension. HOSPITAL COURSE: So therefore he was admitted returned from medical, spent the night and then related to medical was transferred back up to ICU. DISCHARGE DIAGNOSES: AXIS I: Bipolar manic dementia. AXIS II: None. AXIS III: Gram-positive bacteremia, acute kidney failure, hypertension, CAD, hyperlipidemia and hypothyroid, essential tremor. He also has a pacemaker. AXIS IV: Moderate. AXIS V: Global assessment of functioning is 20. At the time of discharge, the patient looked lethargic and was not eating or drinking and was easily agitated and was not medically stable. Dictated By: Jade Baum APN I have interviewed/examined the above patient and agree with these documented findings. TRANSINT:[id number] Voice Confirmation ID: [id number] DOCUMENT ID: [id number] DISCHARGE SUMMARY REPORT [id number] YAMILA CAO Dictated By: JADE BAUM I have interviewed/examined the above patient and agree with these documented findings. GARRETT MENG MD at 1522 at 1535 CC: [id number] DICTATION DATE: 07/20/20 1610 CHIEF DEPUTY CORONER: 07/22/20 2305 ADM IN [id number] [place] [address]
--- NOTE | 2020-07-23 15:22 | PN ---
PATIENT:YAMILA CAO MEDICAL RECORD: [id number] LOCATION:[facility] ADMISSION DATE: 07/15/20 PROGRESS NOTE DATE OF SERVICE: 07/22/2020 SUBJECTIVE: The patient's case was discussed and the chart reviewed. OBJECTIVE: The patient is disorganized, at times agitated. He is unable to interact in a meaningful way. ASSESSMENT: Bipolar disorder, manic. PLAN: The patient's scheduled Valium will be reduced to 5 mg 3 times daily. I have increased the lithium to 600 mg daily. Once the patient is medically stabilized, he can be transferred back to the behavioral unit. TRANSINT:[id number] Voice Confirmation ID: [id number] DOCUMENT ID: [id number] GARRETT MENG MD at 1522 CC: [id number] DICTATION DATE: 07/22/20 160 CASE ASSEMBLER: 07/23/20 0332 ADM IN [facility] [address] [place] [address]
--- NOTE | 2020-07-23 15:22 | PN ---
PATIENT:YAMILA CAO MEDICAL RECORD: [id number] LOCATION:[facility]231 ADMISSION DATE: 07/15/20 PROGRESS NOTE DATE OF SERVICE: 07/21/2020 SUBJECTIVE: The patient's case was discussed with staff. He has no new complaint. OBJECTIVE: The patient is disorganized and rambling. ASSESSMENT: Bipolar disorder. PLAN: I will check another lithium level. The patient's creatinine is significantly elevated. He continues to be very disorganized. TRANSINT:[id number] Voice Confirmation ID: [id number] DOCUMENT ID: [id number] GARRETT MENG MD at 1522 CC: [id number] DICTATION DATE: 07/21/20 170 HEAD LINEMAN: 07/23/20 0101 ADM IN [id number] [place] [address]
--- NOTE | 2020-07-23 19:00 | NUR ---
RECEIVED BEDSIDE REPORT. ROUNDING COMPLETE. PATIENT RESTING COMFORTABLY IN BED. RESPIRATIONS ARE EVEN AND UNLABORED. NO S/S OF DISTRESS. CALL LIGHT WITHIN REACH. NEEDS MET. MARY AMOSOC.
[2020-07-24] VITALS (24 sets, daily range): BP systolic 119–168; BP diastolic 48–95
--- NOTE | 2020-07-24 13:22 | NUR ---
Nutrition reassessment/follow-up: Pt discussed during IDT team rounds. Pt with no lab drawn today Procalamine PPN increased to 100 ml/hr and D5W discontinued No labs to review Wt: 174# ProcalAmine PPN @ 100 ml/hr providin kcal (25-30% est kcal needs) 72 gm protein (90-114% est protein needs) RDN ordered BPM to check Na; if Na remains elevated RD will call Dr. Mckeon for recommendations on how to proceed. RDN follow-up: 07/28/20
--- NOTE | 2020-07-24 15:24 | PN ---
PATIENT:YAMILA CAO MEDICAL RECORD: [id number] LOCATION:[facility] ADMISSION DATE: 07/15/20 PROGRESS NOTE DATE OF SERVICE: 07/23/2020 SUBJECTIVE: The patient's case was discussed with staff. He is in poor behavioral control and is disruptive and agitated. ASSESSMENT: Bipolar disorder. PLAN: This patient's core problem is bipolar disorder, collin. He must have lithium. It is the only medication that has stabilized him over the years. I understand he is not processing medications very well, much of the time he is sedated and the dilemma is he is either behaviorally out of control and requiring sedation or he is agitated. During brief times, when he is able to process anything orally, I would like for him to have lithium that has been dissolved in water and thickened. His lithium level must be therapeutic or there will be no endpoint to the current process that we are in. TRANSINT:[id number] Voice Confirmation ID: [id number] DOCUMENT ID: [id number] GARRETT MENG MD at 1524 CC: [id number] DICTATION DATE: 07/23/20 1629 FOOD CART ATTENDANT: 07/24/20 0014 ADM IN [facility] [address] [id number]
[2020-07-24 15:29] LABS: ANION GAP 12.2 mmol/L (8-16); CALCIUM 9.7 mg/dL (8.5-10.1); CARBON DIOXIDE 25.8 mmol/L (21.0-32.0); CREATININE - SERUM 1.4 mg/dL (0.6-1.3)
--- NOTE | 2020-07-24 19:10 | NUR ---
RECEIVED BEDSIDE REPORT. ROUNDING COMPLETE. PATIENT RESTING COMFORTABLY. RESPIRATIONS ARE EVEN AND UNLABORED. NO S/S OF DISTRESS. NEEDS MET. WILL CPOC.
[2020-07-25] VITALS (10 sets, daily range): BP systolic 100–180; BP diastolic 58–94
[2020-07-25 09:03] LABS: BASOPHILS 0.4 % (0-2); EOSINOPHILS 2.7 % (0-7); LYMPHOCYTES 7.4 % (15-50); MCH 29.9 pg (26.0-34.0); MCHC 33.5 g/dL (31.0-37.0); MCV 89.2 fL (80.0-100.0); MONOCYTES 8.2 % (2-11); NEUTROPHILS 81.3 % (40-80); RBC 3.69 10x6/uL (4.20-6.10); RDW 13.9 % (11.5-14.5)
[2020-07-25 09:10] LABS: PLATELET COUNT 379 10x3/uL (130-400); WBC 11.2 10x3/uL (4.8-10.8)
[2020-07-25 09:13] LABS: ANION GAP 12.2 mmol/L (8-16); CALCIUM 10.7 mg/dL (8.5-10.1); CARBON DIOXIDE 25.2 mmol/L (21.0-32.0); CREATININE - SERUM 1.4 mg/dL (0.6-1.3); POTASSIUM - SERUM 4.4 mmol/L (3.5-5.1)
--- NOTE | 2020-07-25 10:24 | NUR ---
Nutrition follow-up: Pt reviewed during IDT team rounds. Labs reviewed; Na WNL ProcalAmine PPN @ 100 ml/hr NGT placed for medication only at this time due to fear of aspiration RDN will follow-up: 07/28/20
[2020-07-26] VITALS: BP 176/70
[2020-07-26 04:05] VITALS: BP 119/66
--- NOTE | 2020-07-26 06:29 | NUR ---
CALLED AND SPOKE WITH DR. MICHAEL REGARDING BLOOD IN PATIENT GUARDADO CATHETER. NO NEW ORDERS GIVEN. WILL SEE PATIENT THIS AM.
--- NOTE | 2020-07-26 06:35 | NUR ---
RECIEVED REPORT AND PATIENT TO FLOOR FROM ICU. PATIENT RESTING OPEN MOUTH BREATHING, NG TUBE IN PLACE. RESP EVEN AND UNLABORED. LUNG SOUNDS WET. HEART SOUNDS REGULAR RATE AND RYTHYM. IV TO LEFT UPPER ARM NORMAL SALINE AND ELECTROLYTE RUNNING. GUARDADO CATH IN PLACE WITH BLOOD TO BAG. TRAUMA REPORTED TO CATH THIS MORNING. BILATERAL WRIST RESTRAINTS IN PLACE. CIRCULATION TO BILATERAL ARMS AND FINGERS GOOD. SCDS IN USE.
[2020-07-26 08:13] VITALS: BP 151/55
[2020-07-26 11:52] VITALS: BP 139/56
[2020-07-26 12:24] LABS: BASOPHILS 0.2 % (0-2); EOSINOPHILS 3.3 % (0-7); HEMATOCRIT 32.5 % (42.0-54.0); HEMOGLOBIN 10.8 g/dL (13.5-17.5); LYMPHOCYTES 9.9 % (15-50); MCH 29.6 pg (26.0-34.0); MCHC 33.1 g/dL (31.0-37.0); MCV 89.3 fL (80.0-100.0); NEUTROPHILS 78.6 % (40-80); PLATELET COUNT 330 10x3/uL (130-400); RBC 3.64 10x6/uL (4.20-6.10); RDW 14.1 % (11.5-14.5)
[2020-07-26 12:26] LABS: WBC 7.5 10x3/uL (4.8-10.8)
[2020-07-26 12:28] LABS: ANION GAP 10.6 mmol/L (8-16); CALCIUM 10.2 mg/dL (8.5-10.1); CARBON DIOXIDE 25.3 mmol/L (21.0-32.0); CREATININE - SERUM 1.4 mg/dL (0.6-1.3); POTASSIUM - SERUM 3.9 mmol/L (3.5-5.1)
--- NOTE | 2020-07-26 15:02 | NUR ---
ORAL CARE PERFORMED AND SUCTIONING. 2 QUARTER SIZE BROWN BALLS OF MUCOUS REMOVED FROM PATIENTS MOUTH.
[2020-07-26 15:58] VITALS: BP 152/62
[2020-07-26 19:57] VITALS: BP 149/55
--- NOTE | 2020-07-26 22:25 | NUR ---
INITIAL ROUNDS COMPLETED AT 1920 HRS. PT RESTING WITH EYES CLOSED. RESP EVEN AND REGULAR. ASSESSMENT COMPLETED AT 2004 HRS. VSS. PT LETHARGIC, OPENS EYES TO NOXIOUS STIMULI. HAND ATTEMPTING TO PULL AT CATHETER. NGT TO R NARES. IV TO UPPER L ARM ITH NS AT 5CC/HR AND PROCALAMINE AT 100CC/HR. IV PATENT. LUNGS WITH LOOSE RHONCHI WHICH PT ATTEMPTS TO COUGH UP. PT SUCTIONED WITH MODERATE AMOUNT OF YELLOW PHLEGM NOTED. GUARDADO DRAINING BLOODY URINE. SCD'S IN USE. NO BREAKDOWN NOTED. BILAT WRIST RESTRAINTS IN USE TO PROTECT LINES AND TUBES. PM MEDS GIVEN VIA NGT. PT SUCTIONED X3 WITH SMALL AMOUNTS OF YELLOW PHLEGN NOTED. ORAL CARE DONE. HOB UP 45 DEGREES. PT CURRENTLY RESTING WTIH EYES CLOSED. RESP EVEN AND REGULAR. DOOR OPEN AND SITTER AT DOORWAY.
--- NOTE | 2020-07-26 23:09 | NUR ---
PT REPOSITIONED ONTO R SIDE. SUCTIONED X3 WITH THICK MUCUS NOTED. ORAL CARE DONE. SITTER AT DOORWAY.
--- NOTE | 2020-07-27 00:15 | NUR ---
SUCTIONED X3 WITH THICK MUCOUS NOTED. PT TOLERATED WELL.
[2020-07-27 01:14] VITALS: BP 149/69
--- NOTE | 2020-07-27 02:06 | NUR ---
PT RESTING WITH EYES CLOSED. PULLING AT RESTRAINTS. RESP EVEN AND REGULAR. SITTER AT DOORWAY.
--- NOTE | 2020-07-27 02:37 | NUR ---
PT INCONTINENT OF STOOL. INCONTINENT CARE DONE. PT REPOSITIONED IN BED. PT SUCTIONED X4 WITH THICK WHITE EXUDATE NOTED. ORAL CARE DONE. NGT PLACEMENT CHECK WITH AIR AUSCULTATED IN STOMACH. SR UP X2, CALL LIGHT WITHIN REACH AND SITTER IN DOORWAY.
--- NOTE | 2020-07-27 04:12 | NUR ---
REPOSITIONED IN BED. OPENS EYES TO PAINFUL STIMULI. NO CHANGE IN STATUS NOTED. SITTER IN DOORWAY.
--- NOTE | 2020-07-27 06:17 | NUR ---
PT MORE ALERT THIS AM. ATTEMPTING TO GRAB NGT AND GUARDADO. REPOSITIONED IN BED. SITTER AT BEDSIDE.
[2020-07-27 06:30] VITALS: BP 129/54
--- NOTE | 2020-07-27 07:20 | NUR ---
RECIEVE REPORT. CONFUSED. WINNING OUT. WRIST RESTRAINTS ON. SKIN INTACT. GUARDADO DRAINING BY GRAVITY. NG TUBE LT NARE. SITTER AT DOOR. CONTINUE PLAN OF CARE AND SAFETY PRECAUTIONS.
[2020-07-27 12:28] VITALS: BP 129/53
--- NOTE | 2020-07-27 13:54 | NUR ---
ALERT AND ORIENTED X4. SITTING UP IN BED. LOCAL TRUCK DRIVER AT BEDSIDE EXPLAINING PLAN FOR TRANSPORTATION TO [facility] AND TO CARE HOME. PATIENT OK TO DC TODAY. DISCHARGE INSTRUCTIONS GIVEN VERBALLY AND WRITTEN. DISCHARGE PAPERS SIGNED ON CHART. [facility] CALLED FOR TRANSPORTATIONS.
[2020-07-27 15:00] VITALS: BP 123/62
[2020-07-27 20:03] VITALS: BP 145/53
--- NOTE | 2020-07-27 23:27 | NUR ---
INITIAL ROUNDS COMPLETED AT 191 HRS. PT ATTEMPTING TO SCOOT DOWN IN THE BED AND TRYING TO REACH NGT. PT REPOSITIONED IN BED. ASSESSMENT COMPLETED AT 1954 HRS. VSS. PT ALERT, INCOMPREHENSIBLE SOUNDS ONLY. DOES NOT FOLLOW COMMANDS. IV TO UPPER L ARM WITH PROCALAMINE AT 100CC/HR AND NS AT 5CC/HR. IV PATENT. LUNGS DIMINISHED IN BASES BILAT. BRUISE NOTED TO R SHOULDER. ABD SOFT WITH BS NOTED. GUARDADO DRAINING BLOODY URINE. SCD'S IN USE. NO BREAKDOWN NOTED. BILAT SOFT WRIST RESTRAINTS IN USE TO PROTECT NGT AND LINES. NGT CHECKED FOR PLACEMENT VIA AUSCULTATION. PM MEDS GIVEN VIA NGT. ORAL CARE DONE. PT REPOSITIONED IN BED. PT CURRENTLY ATTEMPTNG TO SCOOT TO BOTTOM OF BED. SR UP X3,DOOR OPEN AND CALL LIGHT WITHIN REACH.
[2020-07-27 23:30] VITALS: BP 128/50
--- NOTE | 2020-07-28 00:11 | NUR ---
REPOSITIONED IN BED. ORAL CARE DONE.
--- NOTE | 2020-07-28 02:26 | NUR ---
PT REPOSITIONED IN BED.NO CHANGE IN STATUS NOTED.
--- NOTE | 2020-07-28 03:56 | NUR ---
PT REPOSTIONED IN BED ONTO L SIDE.
[2020-07-28 04:24] VITALS: BP 129/58
--- NOTE | 2020-07-28 06:29 | NUR ---
VSS THROUGHOUT NIGHT. PT REPOSITIONED NUMEROUS TIMES DURING SHIFT. ORAL CARE DONE X3 NEEDS MET; WILL CONTINUE TO MONITOR.
[2020-07-28 07:11] LABS: BASOPHILS 0.2 % (0-2); EOSINOPHILS 2.1 % (0-7); HEMATOCRIT 29.2 % (42.0-54.0); HEMOGLOBIN 9.7 g/dL (13.5-17.5); LYMPHOCYTES 7.9 % (15-50); MCH 29.6 pg (26.0-34.0); MCHC 33.1 g/dL (31.0-37.0); MCV 89.7 fL (80.0-100.0); MEAN PLATELET VOLUME 8.9 fL (7.4-10.4); MONOCYTES 7.7 % (2-11); NEUTROPHILS 82.1 % (40-80); PLATELET COUNT 313 10x3/uL (130-400); RBC 3.26 10x6/uL (4.20-6.10)
[2020-07-28 07:13] LABS: WBC 10.9 10x3/uL (4.8-10.8)
--- NOTE | 2020-07-28 07:20 | NUR ---
RECIEVE REPORT. CONFUSED. MOANING OUT UNCOMPREHENSIVE SOUNDS. ATTEMPT TO CALM BY REPOSITION AND SPEECH UNSUCCESSFUL. GUARDADO DRAINING BY GRAVITY. BILATERAL WRIST RESTRAINTS ON. NG TUBE IN LT NARE. CONTINUE PLAN OF CARE AND SAFETY PRECAUTIONS.
[2020-07-28 07:30] VITALS: BP 137/60
[2020-07-28 07:35] LABS: ANION GAP 12.8 mmol/L (8-16); CALCIUM 10.5 mg/dL (8.5-10.1); CARBON DIOXIDE 22.5 mmol/L (21.0-32.0); CREATININE - SERUM 1.5 mg/dL (0.6-1.3); MAGNESIUM - SERUM 2.7 mg/dL (1.8-2.4); PHOSPHOROUS 3.4 mg/dL (2.5-4.9); POTASSIUM - SERUM 4.3 mmol/L (3.5-5.1)
[2020-07-28 11:30] VITALS: BP 147/63
--- NOTE | 2020-07-28 13:03 | NUR ---
Nutrition Re-Assessment Diet: Regular Puree with thin liquids PO intake: No PO intake recorded recently. Patient was asleep at time of RD visit. He continues with NGT in place. Procalamine @ 100mL/hr provides = 588kcal (25-30% est kcal needs), 72gms protein (95-118% est protein needs) Last BM: 07/27/20 Wt: 167.7# (07/25/20); Admit Wt: 174# (07/15/20)- noted weight is now down -6.3# since admit (<2 weeks). Meds noted: abx, probiotics Labs noted: BUN 45(H), Cr 1.5(H), GFR 48(L) Estimated nutrition needs: 1900-2300cal (25-30kcal/kg Act), 61-76gms protein (0.8-1gms/kg), 1900-2300mL fluid (or per MD) Nutrition diagnosis: Inadequate energy intake r/t inadequate intake from PO, NGT, or PPN AEB procalamine only meeting ~25-30% of estimated energy needs and -6.3# weight loss since admit. Nutrition goals: -Meet estimated needs -Meet fluid needs -Stable weight Recommendations/Interventions: -Recommend PEG placement and start TF of Osmolite 1.5 @ 15mL/hr with gradual increase to goal rate of @ 60mL/hr with 100mL H2O flush q 4hrs to meet 75-100% of estimated nutrition needs. -RD will follow-up within 2-3 days.
[2020-07-28 16:00] VITALS: BP 123/56
--- NOTE | 2020-07-28 19:44 | NUR ---
RECIEVED UP IN BED WITH HOB ELEVATED. LETHARGIC AT THIS TIME. OPEN EYES WITH VERBAL STIMULATION. NO S/S OF DISTRESS OBSERVED.
[2020-07-28 20:16] VITALS: BP 110/52
[2020-07-29] VITALS (7 sets, daily range): BP systolic 101–152; BP diastolic 47–70
--- NOTE | 2020-07-29 10:47 | PN ---
PATIENT:YAMILA CAO MEDICAL RECORD: [id number] LOCATION:[address] ADMISSION DATE: 07/15/20 PROGRESS NOTE DATE OF SERVICE: 07/24/2020 SUBJECTIVE: The patient's case was discussed with staff. He has no new complaint. OBJECTIVE: The patient is still sedated. He was awake earlier today, but was agitated in a way that required p.r.n. medication. ASSESSMENT: Bipolar disorder. PLAN: The patient has not received lithium. He has been too sedated. Possibly a NG tube could be tried again. TRANSINT:[id number] Voice Confirmation ID: [id number] DOCUMENT ID: [id number] GARRETT MENG MD at 1047 CC: [id number] DICTATION DATE: 07/24/20 1530 COSTUMER ASSISTANT: 07/24/20 1653 ADM IN [id number] [place] [address]
[2020-07-29 17:08] LABS: BASOPHILS 0.2 % (0-2); EOSINOPHILS 1.1 % (0-7); LYMPHOCYTES 6.1 % (15-50); MCH 29.1 pg (26.0-34.0); MCHC 32.5 g/dL (31.0-37.0); MCV 89.6 fL (80.0-100.0); MEAN PLATELET VOLUME 8.6 fL (7.4-10.4); MONOCYTES 8.4 % (2-11); NEUTROPHILS 84.2 % (40-80); RBC 3.46 10x6/uL (4.20-6.10); RDW 13.6 % (11.5-14.5)
[2020-07-29 17:10] LABS: PLATELET COUNT 390 10x3/uL (130-400); WBC 14.4 10x3/uL (4.8-10.8)
[2020-07-29 17:33] LABS: CALCIUM 10.4 mg/dL (8.5-10.1); CREATININE - SERUM 1.4 mg/dL (0.6-1.3); VALPROIC ACID (DEPAKOTE) 80.9 ug/mL (50.0-100.0)
--- NOTE | 2020-07-29 19:12 | NUR ---
RECIEVED UP IN BED WITH EYES CLOSED AND YELLING OUT. MAKING UNUSUAL SOUNDS. PROCALAMINE RUNNING AT 100CC/HR. NG TUBE IN PLACE. F/C INTACT WITH DARK COLOR URINE DRAINING TO BEDSIDE DRAINAGE BAG.NO S/S OF DISTRESS OBSERVED.
[2020-07-30 05:24] VITALS: BP 118/70
[2020-07-30 06:24] LABS: BASOPHILS 0.2 % (0-2); EOSINOPHILS 2.3 % (0-7); HEMATOCRIT 28.8 % (42.0-54.0); HEMOGLOBIN 9.4 g/dL (13.5-17.5); LYMPHOCYTES 7.1 % (15-50); MCH 29.2 pg (26.0-34.0); MCHC 32.5 g/dL (31.0-37.0); MCV 89.8 fL (80.0-100.0); MEAN PLATELET VOLUME 8.8 fL (7.4-10.4); NEUTROPHILS 82.4 % (40-80); RBC 3.21 10x6/uL (4.20-6.10); RDW 13.7 % (11.5-14.5); WBC 11.3 10x3/uL (4.8-10.8)
[2020-07-30 06:25] LABS: ANION GAP 13.4 mmol/L (8-16); CALCIUM 10.9 mg/dL (8.5-10.1); CREATININE - SERUM 1.3 mg/dL (0.6-1.3); POTASSIUM - SERUM 4.4 mmol/L (3.5-5.1)
[2020-07-30 06:26] LABS: PLATELET COUNT 195 10x3/uL (130-400)
[2020-07-30 08:00] VITALS: BP 70/44
[2020-07-30 11:50] VITALS: BP 134/49
--- NOTE | 2020-07-30 12:46 | PN ---
PATIENT:YAMILA CAO MEDICAL RECORD: [id number] LOCATION:[address] ADMISSION DATE: 07/15/20 PROGRESS NOTE DATE OF SERVICE: 07/29/2020 SUBJECTIVE: The patient's case was discussed with staff. He has no new complaint. OBJECTIVE: The patient is disorganized, oriented to name, but still confused and agitated. His lithium level is therapeutic at 0.97 mEq. I would presume that it has only been therapeutic for a few days since less than a week ago. Since about a week ago, it was subtherapeutic. I have ordered a Depakote level and some baseline labs. He is once again dehydrated with an elevated BUN and creatinine. He also has an elevated white count and his hematocrit has declined. Obviously, there are other things besides the bipolar disorder that are in need of being addressed and/or being addressed. ASSESSMENT: Bipolar disorder. PLAN: As above. The patient is going to be treated with a scheduled dose of Geodon. He will be maintained on the current dose of lithium and Depakote and I have reduced his p.r.n. medications to a smaller dose that can be given more frequently to titrate it as needed for the level of agitation he is experiencing. TRANSINT:[id number] Voice Confirmation ID: [id number] DOCUMENT ID: [id number] GARRETT MENG MD at 1246 CC: [id number] DICTATION DATE: 07/29/20 1624 PLATE PUT IN WORKER: 07/29/202004 ADM IN [facility] [address] [place] [address]
--- NOTE | 2020-07-30 13:45 | NUR ---
Nutrition Follow-up: Not eating. NPO sign on door. Receiving Procal @ 100 mL/hr; provides 598 kcal & 72 g protein daily. NGT in place. Pt has been unable to participate in PO trials with ST. Diet: Regular, Puree with Thin Liquids No new wt; last wt: 167.7# (07/25) Labs noted: Ca 10.9 Meds noted: Florajen, Protonix -Rec start TF of Osmolite 1.5 @ 15 mL/hr with gradual increase to goal rate of 60 mL/hr + H2O flushes 100 mL q 4 hrs. -Need new wt. -RD follow-up: 08/01
[2020-07-30 15:45] VITALS: BP 131/51
--- NOTE | 2020-07-30 16:34 | NUR ---
I have reviewed this patient and I concur with the Shift Assessment completed by the Licensed Practical Nurse today this shift.
--- NOTE | 2020-07-30 19:55 | NUR ---
RECIEVED UP IN BED WITH EYES CLOSED. DOES NOT RESPOND TO VERBAL STIMULI. NG TUBE IN PLACE AND F/C INTACT WITH CLESR YELLOW URINE DRAINING TO BEDSIDE DRAINAGE BAG. NO S/S OF DISTRESS OBSERVED.
[2020-07-30 20:20] VITALS: BP 134/52
[2020-07-31 00:02] VITALS: BP 115/48
[2020-07-31 04:48] VITALS: BP 150/79
[2020-07-31 07:26] LABS: BASOPHILS 0.1 % (0-2); EOSINOPHILS 2.4 % (0-7); HEMATOCRIT 31.5 % (42.0-54.0); HEMOGLOBIN 10.4 g/dL (13.5-17.5); LYMPHOCYTES 6.7 % (15-50); MCH 29.7 pg (26.0-34.0); MCHC 33.2 g/dL (31.0-37.0); MCV 89.5 fL (80.0-100.0); MEAN PLATELET VOLUME 9.2 fL (7.4-10.4); MONOCYTES 7.8 % (2-11); RBC 3.52 10x6/uL (4.20-6.10); RDW 13.6 % (11.5-14.5)
[2020-07-31 07:27] LABS: PLATELET COUNT 469 10x3/uL (130-400); WBC 14.6 10x3/uL (4.8-10.8)
[2020-07-31 07:28] LABS: ANION GAP 14.2 mmol/L (8-16); CARBON DIOXIDE 22.3 mmol/L (21.0-32.0); CREATININE - SERUM 1.4 mg/dL (0.6-1.3); POTASSIUM - SERUM 5.5 mmol/L (3.5-5.1)
[2020-07-31 08:52] VITALS: BP 106/85
[2020-07-31 13:35] VITALS: BP 136/63
[2020-07-31 20:21] VITALS: BP 167/77
[2020-07-31 23:51] VITALS: BP 172/75
--- NOTE | 2020-08-01 03:50 | NUR ---
Responded to rapid response pt noted to be in [facility]. Called Lilliana to update condition. Lilliana states that the patient would not want to be intubated or have CPR performed. Called Dr iRchey to update condition. ORders received for DNR and PRN morphine. Update bedside nurse.
[2020-08-01 05:28] VITALS: BP 102/65
--- NOTE | 2020-08-01 07:45 | NUR ---
PT LYING IN BED WITH HOB ELEVATED 45 DEGREES. RESP EVEN AND UNLABORED. O2 VIA NC AT [address]. PT DOES NOT RAISE TO ANY STIMULI. AT BEDSIDE. NO RESTRAINTS IN PLACE. CLIR. BED IN LOWEST POSIITON. SCDS IN PLACE. SIDE RAILS X2
[2020-08-01 09:00] VITALS: BP 124/62
[2020-08-01 11:10] LABS: ANION GAP 11.2 mmol/L (8-16); CARBON DIOXIDE 26.5 mmol/L (21.0-32.0); CREATININE - SERUM 1.5 mg/dL (0.6-1.3); POTASSIUM - SERUM 4.7 mmol/L (3.5-5.1)
[2020-08-01 11:17] LABS: BASOPHILS 0.2 % (0-2); EOSINOPHILS 0.4 % (0-7); HEMATOCRIT 30.8 % (42.0-54.0); LYMPHOCYTES 6.6 % (15-50); MCH 29.8 pg (26.0-34.0); MCHC 32.4 g/dL (31.0-37.0); MEAN PLATELET VOLUME 8.7 fL (7.4-10.4); MONOCYTES 11.1 % (2-11); NEUTROPHILS 81.7 % (40-80); RBC 3.35 10x6/uL (4.20-6.10); RDW 13.6 % (11.5-14.5); WBC 13.4 10x3/uL (4.8-10.8)
[2020-08-01 11:20] LABS: MCV 91.9 fL (80.0-100.0); PLATELET COUNT 313 10x3/uL (130-400)
[2020-08-01 12:00] VITALS: BP 109/58
--- NOTE | 2020-08-01 13:52 | NUR ---
Nutrition Follow-up: Minimally responsive. Receiving Procal @ 100 mL/hr. NGT in place for meds. ST signed off / inability to participate in therapy. Noted hospice consulted. No new wt; last wt: 167.7# (07/25) Labs noted: Na 148, BUN 57, Cre 1.5, GFR 48, Ca 11.0 Meds reviewed -Procal inadequate to meet pt's needs. If pt does not go to hospice, rec initiate TF; rec Osmolite 1.5 @ goal rate of 60 mL/hr + H2O flushes 100 mL q 4 hrs. -Need new wt. -RD follow-up: 08/04
--- NOTE | 2020-08-01 14:53 | MORECARE ---
CASE MANAGEMENT DISCHARGE SUMMARY PATIENT: YAMILA CAO UNIT: [id number] ADM DATE: 07/15/20 AGE: 74 : 44 SEX: M ROOM/BED: D.2117 AUTHOR: SERGIO,DOC PHYSICIAN: REFERRING PHYSICIAN: CHERIE MICHAEL MD DATE OF SERVICE: 08/01/20 Case Management Discharge Planning Summary COMMENTS ENTERED DATE: 08/01/20 14:48 CT COMMENT TYPE: Discharge Planning REVIEWER: Cristel Awad CM MET WITH ABOUT HOSPICE & WHAT HER WISHES ARE. SHE WOULD LIKE TO TAKE HER HOME ON HOSPICE. SHE WOULD LIKE TO USE [facility]. I SPOKE WITH TALIA WITH [facility] AND HE WILL BE UP HERE TO SPEAK WITH HER. CM TO FOLLOW AND ASSIST NEEDED DCP REVIEW SUMMARY ANTICIPATED D/C DATE: EXPECTED LOS : CASE STATUS: DCP Initiated INITIAL REVIEW: 07/15/2020 INITIAL REVIEWER: Cristel Awad FINAL DISCHARGE DISPOSITION: : FINAL REVIEWER: FINAL REVIEW DATE: DCP Focus Questions & Answers QUESTION: ANSWER : PATIENT: YAMILA CAO ENCOUNTER: [id number] MEDICAL RECORD#: [id number] ADMISSION DATE: 07/15/2020 DISCHARGE DATE: ATTENDING MD: CHERIE ANAND : AGE: 74 MARITAL STATUS: M DC PLAN ID: [id number] FACILITY: PRINTED ON: 08/01/20 14:53 CT All edits/amendments must be made on the electronic document DICTATION DATE: 08/01/201452 PER DIEM RN: SY 08/01/20 145 RPT#: [id number] DC DATE: STATUS: ADM IN [address] [place] [address] END OF REPORT
[2020-08-01 16:00] VITALS: BP 142/63
--- NOTE | 2020-08-01 16:29 | MORECARE ---
CASE MANAGEMENT DISCHARGE SUMMARY PATIENT: YAMILA CAO UNIT: [id number] ADM DATE: 07/15/20 AGE: 74 : 44 SEX: M ROOM/BED: D.[facility]7 AUTHOR: SERGIO,DOC PHYSICIAN: REFERRING PHYSICIAN: CHERIE MICHAEL MD DATE OF SERVICE: 08/01/20 Case Management Discharge Planning Summary COMMENTS ENTERED DATE: 08/01/20 16:19 CT COMMENT TYPE: Discharge Planning REVIEWER: Cristel Herrera with [facility] here speaking with the patients . Anticipate dc tomorrow home with [facility] ENTERED DATE: 08/01/20 14:48 CT COMMENT TYPE: Discharge Planning REVIEWER: Cristel Awad CM MET WITH ABOUT HOSPICE & WHAT HER WISHES ARE. SHE WOULD LIKE TO TAKE HER HOME ON HOSPICE. SHE WOULD LIKE TO USE [facility]. I SPOKE WITH TALIA WITH [facility] AND HE WILL BE UP HERE TO SPEAK WITH HER. CM TO FOLLOW AND ASSIST NEEDED DCP REVIEW SUMMARY ANTICIPATED D/C DATE: EXPECTED LOS : CASE STATUS: DCP Initiated INITIAL REVIEW: 07/15/2020 INITIAL REVIEWER: Cristel Awad FINAL DISCHARGE DISPOSITION: : FINAL REVIEWER: FINAL REVIEW DATE: DCP Focus Questions & Answers QUESTION: ANSWER : PATIENT: YAMILA CAO ENCOUNTER: [id number] MEDICAL RECORD#: [id number] ADMISSION DATE: 07/15/2020 DISCHARGE DATE: ATTENDING MD: CHERIE ANAND : AGE: 74 MARITAL STATUS: M DC PLAN ID: [id number] FACILITY: [facility] PRINTED ON: 08/01/20 16:29 CT All edits/amendments must be made on the electronic document DICTATION DATE: 08/01/201628 AGENCY DEVELOPMENT MANAGER: SY 08/01/201628 RPT#: [id number] DC DATE: STATUS: ADM IN [facility] [address] [place] [address] END OF REPORT
[2020-08-01 20:47] VITALS: BP 114/93
[2020-08-02 00:43] VITALS: BP 120/51
[2020-08-02 05:37] VITALS: BP 133/53
[2020-08-02 09:17] VITALS: BP 134/75
[2020-08-02] MEDS ORDERED: CATAPRES TTS-20.2 MG TRANSDERM (09:53)
[2020-08-02] MEDS ORDERED: LORAZEPAM1 MG/0.5 M SL (10:15)
[2020-08-02] MEDS ORDERED: MORPHINE S10 MG/5 ML PO (10:15)
--- NOTE | 2020-08-02 14:33 | NUR ---
IV AND NGT DCD. AMBULANCE NOTIFIED FOR TRANSPORT. WILL CONT. PLAN OF CARE.
--- NOTE | 2020-08-02 14:50 | NUR ---
LEAVING WITH EMS BY STRETCHER.
--- NOTE | 2020-08-02 17:54 | MORECARE ---
CASE MANAGEMENT DISCHARGE SUMMARY PATIENT: YAMILA ORTEGA UNIT: [id number] ADM DATE: 07/15/20 AGE: 74 : 44 SEX: M ROOM/BED: D.2117 AUTHOR: SERGIO,DOC PHYSICIAN: REFERRING PHYSICIAN: CHERIE MICHAEL MD DATE OF SERVICE: 08/02/20 Case Management Discharge Planning Summary COMMENTS ENTERED DATE: 08/02/20 17:47 CT COMMENT TYPE: Discharge Planning REVIEWER: Lis Felix CM spoke with patient's , Lilliana Ortega, to discuss discharge plan of home with [facility] services. She stated that she had not yet received the equipment for her . She stated she is expecting a hospital bed and O2 concentrator. Called [facility] and spoke with Luz Maria, on-call nurse who stated the equipment would be delivered late morning or early afternoon. Called patient's to communicate the delivery timeframe. Lilliana stated she is comfortable with the patient's discharge if the equipment is delivered first. CM later confirmed that the equipment had been delivered then transportation was arranged with the ambulance service. Lilliana stated she will have a large support system with family members planning to visit to assist with the patient's care as well as neighbors who have offered to assist her with errands outside of the home. CM discussed the potential availability of inpatient hospice services should that eventually be needed, and Lilliana stated she wants to try to care for her at home before considering this option. CM will continue to follow until discharge. ENTERED DATE: 08/01/20 16:19 CT COMMENT TYPE: Discharge Planning REVIEWER: Cristel Herrera with [facility] here speaking with the patients . Anticipate dc tomorrow home with [facility] ENTERED DATE: 08/01/20 14:48 CT COMMENT TYPE: Discharge Planning REVIEWER: Cristel Ritesh CM MET WITH ABOUT HOSPICE & WHAT HER WISHES ARE. SHE WOULD LIKE TO TAKE HER HOME ON HOSPICE. SHE WOULD LIKE TO USE [facility]. I SPOKE WITH TALIA WITH [facility] AND HE WILL BE UP HERE TO SPEAK WITH HER. CM TO FOLLOW AND ASSIST NEEDED DCP REVIEW SUMMARY ANTICIPATED D/C DATE: EXPECTED LOS : CASE STATUS: DCP Complete INITIAL REVIEW: 07/15/2020 INITIAL REVIEWER: Cristel Awad FINAL DISCHARGE DISPOSITION: 50 : In-Home Hospice Care FINAL REVIEWER: Lis Felix FINAL REVIEW DATE: DCP Focus Questions & Answers QUESTION: ANSWER : PATIENT: YAMILA ORTEGA ENCOUNTER: [id number] MEDICAL RECORD#: [id number] ADMISSION DATE: 07/15/2020 DISCHARGE DATE: 08/02/2020 ATTENDING MD: CHERIE ANAND : AGE: 74 MARITAL STATUS: M DC PLAN ID: [id number] FACILITY: [facility] PRINTED ON: 08/02/20 17:54 CT All edits/amendments must be made on the electronic document DICTATION DATE: 08/02/201753 RELATIONSHIP ASSOC: SY 08/02/201753 RPT#: [id number] DC DATE:08/02/20 STATUS: DIS IN [facility] [address] [place] [address] END OF REPORT
--- NOTE | 2020-08-04 08:31 | MORECARE ---
CASE MANAGEMENT DISCHARGE SUMMARY PATIENT: YAMILA ORTEGA UNIT: [id number] ADM DATE: 07/15/20 AGE: 74 : 44 SEX: M ROOM/BED: D.2117 AUTHOR: SERGIO,DOC PHYSICIAN: REFERRING PHYSICIAN: CHERIE MICHAEL MD DATE OF SERVICE: 08/04/20 Case Management Discharge Planning Summary COMMENTS ENTERED DATE: 08/02/20 17:47 CT COMMENT TYPE: Discharge Planning REVIEWER: Lis Felix CM spoke with patient's , Lilliana Ortega, to discuss discharge plan of home with [facility]. She stated that she had not yet received the equipment for her . She stated she is expecting a hospital bed and O2 concentrator. Called [facility] and spoke with Luz Maria, on-call nurse who stated the equipment would be delivered late morning or early afternoon. Called patient's to communicate the delivery timeframe. Lilliana stated she is comfortable with the patient's discharge if the equipment is delivered first. CM later confirmed that the equipment had been delivered then transportation was arranged with the ambulance service. Lilliana stated she will have a large support system with family members planning to visit to assist with the patient's care as well as neighbors who have offered to assist her with errands outside of the home. CM discussed the potential availability of inpatient hospice services should that eventually be needed, and Lilliana stated she wants to try to care for her at home before considering this option. CM will continue to follow until discharge. ENTERED DATE: 08/01/20 16:19 CT COMMENT TYPE: Discharge Planning REVIEWER: Cristel Herrera with [facility] here speaking with the patients . Anticipate dc tomorrow home with [facility] ENTERED DATE: 08/01/20 14:48 CT COMMENT TYPE: Discharge Planning REVIEWER: Cristel Ritesh CM MET WITH ABOUT HOSPICE & WHAT HER WISHES ARE. SHE WOULD LIKE TO TAKE HER HOME ON HOSPICE. SHE WOULD LIKE TO USE [facility]. I SPOKE WITH TALIA WITH [facility] AND HE WILL BE UP HERE TO SPEAK WITH HER. CM TO FOLLOW AND ASSIST NEEDED DCP REVIEW SUMMARY ANTICIPATED D/C DATE: EXPECTED LOS : CASE STATUS: DCP Complete INITIAL REVIEW: 07/15/2020 INITIAL REVIEWER: Cristel Awad FINAL DISCHARGE DISPOSITION: 50 : In-Home Hospice Care FINAL REVIEWER: Lis Felix FINAL REVIEW DATE: DCP Focus Questions & Answers QUESTION: ANSWER : PATIENT: YAMILA ORTEGA ENCOUNTER: [id number] MEDICAL RECORD#: [id number] ADMISSION DATE: 07/15/2020 DISCHARGE DATE: 08/02/2020 ATTENDING MD: CHERIE ANAND : AGE: 74 MARITAL STATUS: M DC PLAN ID: [id number] FACILITY: [facility] PRINTED ON: 08/04/20 8:31 CT All edits/amendments must be made on the electronic document DICTATION DATE: 08/04/20830 DRAFTER STRUCTURAL: SY 08/04/20830 RPT#: [id number] DC DATE:08/02/20 STATUS: DIS IN [facility] [address] [place] [address] END OF REPORT
--- NOTE | 2020-08-04 15:12 | PN ---
PATIENT:YAMILA CAO MEDICAL RECORD: [id number] LOCATION:[address] ADMISSION DATE: 07/15/20 PROGRESS NOTE DATE OF SERVICE: 07/31/2020 SUBJECTIVE: The patient's case was discussed with staff. He has no new complaint. OBJECTIVE: The patient is significantly and seriously disorganized. He also has some very abnormal lab. He has shown no improvement despite the therapeutic levels of his Depakote and lithium. ASSESSMENT: Bipolar disorder. PLAN: Resolving this patient's underlying medical needs obviously is the first priority. Maintaining him on the lithium and Depakote are the appropriate treatments for his very well-established diagnosis of bipolar disorder and then in addition to that medications that we will keep him safe on an as needed basis have been ordered. TRANSINT:[id number] Voice Confirmation ID: [id number] DOCUMENT ID: [id number] GARRETT MENG MD at 1512 CC: [id number] DICTATION DATE: 07/31/20 1538 SCRUB WOMAN: 07/31/20 2214 DIS IN 08/02/[id number] [place] [address]
== END 2020-08-02 14:53 | disposition home health service (06) | DRG 871 ==
LOC: D.ICU 18:02 → D.M2 07-26 06:41
PROVIDERS: Internal Medicine Pulmonary Disease; Psychiatry & Neurology Psychiatry; ADMIT Family Medicine; ATTEND Family Medicine
DX: A41.9 Sepsis, unspecified organism (principal); N17.0 Acute kidney failure with tubular necrosis; J18.9 Pneumonia, unspecified organism; E43 Unspecified severe protein-calorie malnutrition; F31.12 Bipolar disorder, current episode manic without psychotic features, moderate; R50.9 Fever, unspecified; I25.10 Atherosclerotic heart disease of native coronary artery without angina pectoris; I10 Essential (primary) hypertension; E78.5 Hyperlipidemia, unspecified; E03.8 Other specified hypothyroidism; E06.3 Autoimmune thyroiditis; Z95.0 Presence of cardiac pacemaker; R41.82 Altered mental status, unspecified; N40.1 Benign prostatic hyperplasia with lower urinary tract symptoms; R33.8 Other retention of urine; Z68.24 Body mass index [BMI] 24.0-24.9, adult; Z66 Do not resuscitate